=== PATIENT | female | born 1990 | race Caucasian/White ===

== ENCOUNTER 2022-10-21 19:31 | Emergency (ER) | payer BC ==
--- OUTSIDE RECORDS SUMMARY | 2022-10-21 19:35 | XMS REPORT | Continuity of Care Document ---
:1990 Author Organization [facility] t Address [address] [place] [address] [place] [id number] Care Team Providers Name Role Phone Mj West Attending Clinician MJ WEST Attending Clinician Unavailable Problems Condition Condition Condition Status Onset Resolution Last Treating Co mments Source Name Details Category Date Date Treatment Clinician Date N20.0 N20.0 Diagnosis Active 2022-09-25 Mem oria Active 713 10:15:00 l 09/21/2022 00:00: Tigre n MH 00 [facility] Flank pain Flank Problem Active 2022-10-12 M emoria (finding) pain 02:23:47 l (finding) Mineral Active Problem 10/12/2022 [facility] [place] [facility] Kidney Problem Active 2022-10-12 Scott danial stone stone 02:23:47 l (disorder) (disorder) rmjon Active Problem 10/12/2022 [facility] [place] [facility] Allergies, Adverse Reactions, Alerts This patient has no known allergies or adverse reactions. Medications Ordered Filled Start Stop Current Ordering Indication Dosage Frequency Signature Comments Components Source Medication Medication Date Date Medication? Clinician (SIG) Name Name tamsulosin Yes 0.4 mg = 1 M emoria 0.4 mg oral 7- cap, PO, l capsule 19:29: Daily, # Tigre n 00 30 cap, 0 Refill(s), Pharmacy: [facility] [place], 167.64, cm, 09/21/22 14:11:00 CDT, Height, 96.364, kg, 09/21/22 14:11:00 CDT, Weight acetaminoph Yes 300 mg =, M emoria en-hydrocod 7-13 PO, 0 l one 300 19:13: Refill(s) Ignacia nn mg-10 mg 00 oral tablet ondansetron Yes 4 mg, PO, M emoria 4 mg oral 7-13 0 l tablet, 19:13: Refill(s) Ignacia nn disintegrat 00 ing CeleXA 20 0 Yes 20 mg, PO, Me moria mg oral 713 Bedtime, 0 l tablet 19:12: Refill(s) Tigre n 00 hydrOXYzine Yes 10 mg, PO, Memoria hydrochlori 7-13 Bedtime, 0 l de 10 mg 19:12: Refill(s) Herm jon oral tablet 00 hydrochloro 0 Yes 25 mg, PO, Memoria thiazide 25 7-13 Daily, 0 l mg oral 19:12: Refill(s) Ignacia nn tablet 00 calcium Yes 950 mg, Memoria citrate 7-13 PO, Daily, l 19:12: 0 Mineral 00 Refill(s) Adzenys 0 Yes 9.4 mg, Memoria XR-ODT 9.4 7-13 PO, Daily, l mg oral 19:12: 0 Anil tablet, 00 Refill(s) disintegrat ing, extended release loratadine Yes 10 mg, PO, M emoria 10 mg oral 713 Bedtime, 0 l capsule 19:12: Refill(s) Ignacia nn 00 Immunizations Ordered Immunization Filled Immunization Date Status Commen ts Source Name Name tetanus 2022-06-13 Completed [facility] toxoid<sup>1</sup> 05:00:00 Tigre n Procedures Procedure Date / Time Performing Clinician Source Performed Cystoscopy and lithotripsy 2022-04-12 06:00:00 M warren Ma (Laser used to break up the stones in the bladder) Tympanostomy (Ear Tube 2021-06-07 05:00:00 Memor ial Anil placement) Tubal ligation done (Tubal 2020-12-13 05:00:00 M emorimarilyn Ma tied) Cholecystectomy (Gall 2015-06-11 05:00:00 Memori al Anil bladder removal) [facility] Lith[facility]ripsy using laser [facility] (Laser to break kidney stones into tiny pieces) Lithotripsy (Sending [facility] ultrasonic energy or shock waves to kidney stone) Endoscopy [facility] Colonoscopy [facility] Encounters Start End Encounter Admission Attending Care Care Encounter Source Date/Time Date/Time Type Type Clinicians Facility Department ID 2023-03-27 2023-03-27 Outpatient DARRYL DARRYL [id number] Memoria 08:45:00 08:45:00 04 l Anil 2022-10-20 2022-10-20 Outpatient DARRYL DARRYL [id number] Memoria 08:15:00 08:15:00 03 l Mineral 2022-10-09 2022-10-09 Ambulatory DARRYL [facility] [id number] Memoria 21:45:00 21:45:00 [facility] 2022-10-09 2022-10-09 Outpatient TADEO West [facility] [id number] 16:45:00 16:45:00 Mj L 00 2022-09-26 2022-09-26 Outpatient DARRYL [facility] [id number] Memoria 09:15:00 09:15:00 02 l Mineral 2022-09-25 2022-09-26 Outpatient DARRYL [facility] [id number] Memoria 15:07:00 04:59:00 Anil 00 l [place] 2022-09-25 2022-09-25 Outpatient Carlos [facility] [id number] 10:07:00 23:59:00 Mj L 00 2022-09-25 2022-09-25 Outpatient ESTELA [facility] [id number] 10:07:00 23:59:[address] [facility] Results Test Description Test Time Test Comments Results Result Comments Source RADRPT 2022-09-26 20:07:49 Test Item Value Reference Range Interpretation Comme nts RADRPT (test code = RADRPT) Radiation Dose CTDIVOL = 0 (mGy): DLP = 348.7 (mGy-cm)PROCEDURE INFORMATION: Exam: CT Abdomen And Pelvis Without Contrast Exam date and time: 09/25/2022 11:51 AM Age: 32 years old Clinical indication: Calculus of kidney; Additional info: /. TECHNIQUE: Imaging protocol: Computed tomography of the abdomen and pelvis without contrast. Radiation optimization: All CT scans at this facility use at least one of these dose optimization techniques: automated exposure control; mA and/or kV adjustment per patient size (includes targeted exams where dose is matched to clinical indication); or iterative reconstruction. REPORTING DATA: Count of CT and Cardiac NM exams in prior 12 months: This patient has received 0 known CTs and 0 known cardiac nuclear medicine studies in the 12 months prior to the current study. COMPARISON: No relevant prior studies available. RADIATION DOSE METRICS: Total DLP (mGy-cm): 348.7 FINDINGS: Liver: Diffuse fatty infiltration of the liver. Gallbladder and bile ducts: Cholecystectomy. Pancreas: Normal. No ductal dilation. Spleen: Normal. No splenomegaly. Adrenal glands: Normal. No mass. Kidneys and ureters: Nonobstructing stones in the kidneys. No hydronephrosis. Stomach and bowel: Unremarkable. No obstruction. No mucosal thickening. Appendix: No evidence of appendicitis. Intraperitoneal space: Unremarkable. No free air. No significant fluid collection. Vasculature: Unremarkable. No abdominal aortic aneurysm. Lymph nodes: Unremarkable. No enlarged lymph nodes. Urinary bladder: Unremarkable as visualized. Reproductive: Unremarkable as visualized. Bones/joints: Unremarkable. No acute fracture. Soft tissues: Unremarkable. IMPRESSION: 1. Nonobstructing calyceal stones in the kidneys. 2. Hepatic steatosis. Heriberto Calderon MD On 09/26/2022 15:06:56; [id number] [id number] 13:11:19 Test Item Value Reference Range Interpretation Comments RADRPT (test code PROCEDURE INFORMATION: = RADRPT) Exam: XR Abdomen Exam date and time: 09/25/2022 12:38 PM Age: 32 years old Clinical indication: Calculus of kidney; Unspecified abdominal pain; Additional info: /n20.0, r10.9 TECHNIQUE: Imaging protocol: Radiologic exam of the abdomen. Views: Frontal supine view of the abdomen. 1 View. COMPARISON: ABDOMEN/PELVIS WO IV CONTRAST CT 09/25/2022 11:51 AM FINDINGS: Gastrointestinal tract: Mild stool burden at the flexures, transverse and right colon. Nonobstructive bowel gas pattern. Organs: Surgical clips are present at the right upper quadrant likely status post cholecystectomy. Several punctate 1-1.5 mm radiopaque left renal calculi are present at the superior and inferior poles. Bones/joints: No acute abnormality.Unremarkable for age. IMPRESSION: Several punctate 1-1.5 mm radiopaque left renal calculi are present at the superior and inferior poles. A single punctate 1 x 1.5 mm radiopaque right renal calculus is present at the inferior pole. Aris Martínez MD On 09/26/2022 08:10:25; [id number] [facility] Notes Date/Time Note Provider Source 2022-09-25 11:45:00-00:00 Radiation Dose CTDIVOL = 0 ( mGy): DLP = 348.7 (mGy-cm) [facility] PROCEDURE INFORMATION: Exam: CT Abdomen And Pelvis Without Contrast Exam date and time: 09/25/2022 11:51 AM Age: 32 years old Clinical indication: Calculus of kidney; Additio nal info: /. TECHNIQUE: Imaging protocol: Computed tomography of the abd omen and pelvis without contrast. Radiation optimization: All CT scans at this facility use at least one of these dose optimization techniques: automated exposure control; mA and/or kV adjustment per patient size (includes targeted e xams where dose is matched to clinical indication); or iterative reconstructio n. REPORTING DATA: Count of CT and Cardiac NM exams in prio r 12 months: This patient has received 0 known CTs and 0 known card iac nuclear medicine studies in the 12 months prior to the current study. COMPARISON: No relevant prior studies available. RADIATION DOSE METRICS: Total DLP (mGy-cm): 348.7 FINDINGS: Liver: Diffuse fatty infiltration of the liver. Gallbladder and bile ducts: Cholecystectomy. Pancreas: Normal. No ductal dilation. Spleen: Normal. No splenomegaly. Adrenal glands: Normal. No mass. Kidneys and ureters: Nonobstructing stones in th e kidneys. No hydronephrosis. Stomach and bowel: Unremarkable. No obstruction. No mucosal thickening. Appendix: No evidence of appendicitis. Intraperitoneal space: Unremarkable. No free air . No significant fluid collection. Vasculature: Unremarkable. No abdominal aortic a neurysm. Lymph nodes: Unremarkable. No enlarged lymph nod es. Urinary bladder: Unremarkable as visualized. Reproductive: Unremarkable as visualized. Bones/joints: Unremarkable. No acute fracture. Soft tissues: Unremarkable. IMPRESSION: 1. Nonobstructing calyceal stones in the kidneys . 2. Hepatic steatosis. Heriberto Calderon MD On 09/26/2022 15:06:56; [id number] 2022-09-25 10:46:00-00:00 PROCEDURE INFORMATION: Jeison Exam: XR Abdomen Exam date and time: 09/25/2022 12:38 PM Age: 32 years old Clinical indication: Calculu s of kidney; Unspecified abdominal pain; Additional info: /n20.0, r10.9 TECHNIQUE: Imaging protocol: Radiologic exam of the abdomen . Views: Frontal supine view of the abdomen. 1 Vie w. COMPARISON: ABDOMEN/PELVIS WO IV CONTRAST CT 09/25/2022 11:51 AM FINDINGS: Gastrointestinal tract: Mild stool burden at the flexures, transverse and right colon. Nonobstructive bowel gas pattern. Organs: Surgical clips are present at the right upper quadrant likely status post cholecystectomy. Several punctate 1-1.5 mm radiopaque left renal calculi are present at the superior and inferior poles. Bones/joints: No acute abnormality.Unremarkable for age. IMPRESSION: Several punctate 1-1.5 mm radiopaque left renal calculi are present at the superior and inferior poles. A single punctate 1 x 1.5 mm radiopaque right renal calculus is present at the inferior pole. Aris Martínez MD On 09/26/2022 08:10:25; [id number]
[2022-10-21] MEDS ORDERED: HYDROCODONE/APAP 5/325 MG TAB ONE (21:06)
[2022-10-21] MEDS ORDERED: HYDROCODONE/APAP 7.5/325 MG TAB ONE (21:06)
--- NOTE | 2022-10-21 22:00 | RAD REPORT ---
EXAM DESCRIPTION: RAD - Foot Right 3 View - 10/21/2022 9:40 pm CLINICAL HISTORY: laceration COMPARISON: Foot Right 3 View dated 10/03/2022 TECHNIQUE: Right foot, 3 views. FINDINGS: No fracture, dislocation or periosteal reaction. Soft tissue swelling along the heel small locules of soft tissue gas. IMPRESSION: Soft tissue swelling with small locules of soft tissue gas at the heel, likely related t o known laceration. No acute osseous abnormality.
[2022-10-21] MEDS ORDERED: DERMABOND SKIN ADHESIVE TOP ONE ×2 (22:30→22:54)
--- NOTE | 2022-10-21 22:48 | ER ---
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 Coronavirus screen: Vaccine status: Patient reports being unvaccinated. Ebola Screen: Patient negative for fever greater than or equal to 101.5 degrees Fahrenheit, and additional compatible Ebola Virus Disease symptoms. Complicating Factors: There are no complicating factors for this patient. Initial Sepsis Screen: Does the patient meet any 2 criteria? No. Patient's initial sepsis screen is negative. Does the patient have a suspected source of infection? No. Patient's initial sepsis screen is negative. Risk Assessment: Do you want to hurt yourself or someone else? Patient reports no desire to harm self or others. 19:38 Method Of Arrival: Ambulatory 19:38 Acuity: TAHIRA 4 kl 22:33 Onset of symptoms was October 21, 2022. eb1 Triage Assessment: 19:46 General: Appears in no apparent distress. comfortable, Behavior is calm, cooperative. Pain: Complains of pain in left first toe Pain currently is 7 out of 10 on a pain scale. Injury Description: Laceration is bleeding a small amount. PROJECT ASST: 22:33 LMP N/A - eb1 Historical: - Allergies: 19:41 Latex, Natural Rubber; kl 19:41 duracef; kl 19:41 Keflex; kl 19:41 Macrobid; kl 19:41 Septra; kl 19:41 Detrol LA; kl - Home Meds: 19:41 Celexa Oral [Active]; Hydroxyzine Oral [Active]; HCTZ [Active]; Calcium Citrate Oral kl [Active]; Adzenys XR-ODT oral [Active]; loratadine oral [Active]; - PMHx: 19:41 Asthma; ADD; Celiac; IGA; Medullary sponge kidney; depression; Anxiety; kl - PSHx: 19:41 Ligation of fallopian tube; Ligation of fallopian tube; Lithotripsy; Cholecystectomy; kl - Immunization history:: Last tetanus immunization: up to date. - Social history:: Smoking status: Patient denies any tobacco usage or history of. Screenin:32 [facility] ED Fall Risk Assessment (Adult) Score/Fall Risk Level 0 - 2 = Low Risk eb1 Oriented to surroundings. Abuse screen: Denies threats or abuse. Denies injuries from another. Nutritional screening: No deficits noted. Tuberculosis screening: No symptoms or risk factors identified. Assessment: 21:09 General: Appears in no apparent distress. uncomfortable, well groomed, well developed, eb1 well nourished, Behavior is calm, cooperative, appropriate for age, Denies fever, feeling ill, fatigue. Pain: Complains of pain in left first toe Pain currently is 8 out of 10 on a pain scale. Neuro: No deficits noted. Cardiovascular: No deficits noted. Respiratory: No deficits noted. GI: No deficits noted. No signs and/or symptoms were reported involving the gastrointestinal system. : No deficits noted. No signs and/or symptoms were reported regarding the genitourinary system. EENT: No deficits noted. No signs and/or symptoms were reported regarding the EENT system. Derm: Wound noted left first toe Wound is laceration to top of left great toe from metal marti. Musculoskeletal: No deficits noted. No signs and/or symptoms reported regarding the musculoskeletal system. 22:13 Reassessment: Patient appears in no apparent distress at this time. No changes from eb1 previously documented assessment. Patient and/or family updated on plan of care and expected duration. Pain level reassessed. 22:34 Injury Description: Laceration is clean. eb1 Vital Signs: 19:38 BP 125 / 92; Pulse 92; Resp 18; Temp 98.8; Pulse Ox 100% on R/A; Weight 92.99 kg (R); kl Height 5 ft. 6 in. ; Pain 7/10; 21:11 BP 138 / 80; Pulse 88; Resp 16; Temp 97.2; Pulse Ox 98% ; Pain 8/10; eb1 19:38 Body Mass Index 33.09 (92.99 kg, 167.64 cm) kl 19:38 Pain Scale: Adult kl 21:11 Pain Scale: Adult eb1 ED Course: 19:36 Patient arrived in ED. kj1 19:41 Triage completed. kl 20:01 Alejandrina Barrera PA-C is PHCP. sb4 20:01 Danielle Potts MD is Attending Physician. sb4 21:29 Foot Right 3 View XRAY Sent. eb1 21:41 Foot Right 3 View XRAY In Process Unspecified. EDMS 22:32 No provider procedures requiring assistance completed. eb1 22:32 Arm band placed on right wrist. eb1 22:33 Patient has correct armband on for positive identification. Bed in low position. Call eb1 light in reach. 22:56 Provided Education on: keep wound clean and dry. eb1 23:07 Patient did not have IV access during this emergency room visit. eb1 Administered Medications: 20:59 Drug: Hydrocodone-Acetaminophen PO (7.5 mg-325 mg) 1 tabs Route: PO; eb1 22:14 Follow up: Response: Pain is decreased eb1 Medication: 22:33 VIS not applicable for this client. eb1 Outcome: 22:48 Discharge ordered by MD. sb4 22:55 Condition: good eb1 22:55 Discharge instructions given to patient, Instructed on discharge instructions, medication usage, wound care, Demonstrated understanding of instructions, medications, wound care. 23:07 Discharged to home ambulatory, with family. eb1 23:07 Prescriptions given X 2. 23:08 Patient left the ED. eb1 Signatures: Dispatcher [employer] EDBri Story RN RN kl Basinger, Emily, RN RN Laisha Colon Sophia, PA-C PA-C sb4 Corrections: (The following items were deleted from the chart) 19:45 19:41 Allergies: No Known Allergies; pura neves
--- NOTE | 2022-10-21 22:49 | EDPHYS ---
Physician Documentation [facility] Name: Carole Llanes Age: 32 yrs Sex: Female : 1990 Arrival Date: 10/21/2022 Time: 19:31 Bed 11 Private MD: ED Physician Danielle Potts HPI: 10/22 02:32 This 32 yrs old Female presents to ER via Ambulatory with complaints of Laceration To sb4 Foot . 02:32 The patient has a laceration occurred outdoors, The injury was accidental. The sb4 laceration(s) is(are) located on the left first toe. Onset: The symptoms/episode began/occurred just prior to arrival. The patient has not experienced similar symptoms in the past. [place] "pop up" tent when the leg of the tent scraped her left foot. she reports moderate bleeding and pain to the site. up to date on tetanus. CHEMICAL TESTER: 10/21 22:33 LMP N/A - eb1 Historical: - Allergies: 19:41 Latex, Natural Rubber; kl 19:41 duracef; kl 19:41 Keflex; kl 19:41 Macrobid; kl 19:41 Septra; kl 19:41 Detrol LA; kl - Home Meds: 19:41 Celexa Oral [Active]; Hydroxyzine Oral [Active]; HCTZ [Active]; Calcium Citrate Oral kl [Active]; Adzenys XR-ODT oral [Active]; loratadine oral [Active]; - PMHx: 19:41 Asthma; ADD; Celiac; IGA; Medullary sponge kidney; depression; Anxiety; kl - PSHx: 19:41 Ligation of fallopian tube; Ligation of fallopian tube; Lithotripsy; Cholecystectomy; kl - Immunization history:: Last tetanus immunization: up to date. - Social history:: Smoking status: Patient denies any tobacco usage or history of. ROS: 10/22 02:32 Constitutional: Negative for fever, chills, and weight loss. sb4 MS/extremity: Positive for laceration, of the left foot. Skin: Positive for laceration(s). All other systems are negative. Exam: 14:57 Constitutional: This is a well developed, well nourished patient who is awake, alert, sb4 and in no acute distress. 14:57 Skin: injury, laceration(s), the wound is approximately 2 cm(s), with a depth of .5 cm(s), of the left first toe, that can be described as clean, no foreign body, linear, with mild bleeding. Vital Signs: 10/21 19:38 BP 125 / 92; Pulse 92; Resp 18; Temp 98.8; Pulse Ox 100% on R/A; Weight 92.99 kg (R); kl Height 5 ft. 6 in. ; Pain 7/10; 21:11 BP 138 / 80; Pulse 88; Resp 16; Temp 97.2; Pulse Ox 98% ; Pain 8/10; eb1 19:38 Body Mass Index 33.09 (92.99 kg, 167.64 cm) kl 19:38 Pain Scale: Adult kl 21:11 Pain Scale: Adult eb1 Laceration: 10/22 14:57 Wound Repair of 2cm ( 0.8in ) subcutaneous laceration to left first toe. Linear sb4 shaped.. Minimal contamination.. Minimal bleeding noted.. Distal neuro/vascular/tendon intact. Wound prep: Extensive cleansing with betadine by nurse. Skin closed with 1-0 Adhesive skin closure using Dermabond. Dressed with Kerlix. Patient tolerated well. MDM: 10/21 20:02 Patient medically screened. sb4 10/22 14:57 Differential diagnosis: superficial laceration, tendon injury, vascular injury. Data sb4 reviewed: vital signs, nurses notes, radiologic studies, plain films, and as a result, I will discharge patient. Test considered but Not performed: Labs: not indicated given minor laceration. Counseling: I had a detailed discussion with the patient and/or guardian regarding: the historical points, exam findings, and any diagnostic results supporting the discharge/admit diagnosis, radiology results, to return to the emergency department if symptoms worsen or persist or if there are any questions or concerns that arise at home. Medication response: norco, pain decreased. 10/21 20:48 Order name: Foot Right 3 View XRAY; Complete Time: 22:13 sb4 10/21 20:48 Order name: Wound Care: soak in betadine bath; Complete Time: 21:29 sb4 10/21 21:21 Order name: Dermabond; Complete Time: 22:46 sb4 Administered Medications: 10/21 20:59 Drug: Hydrocodone-Acetaminophen PO (7.5 mg-325 mg) 1 tabs Route: PO; eb1 22:14 Follow up: Response: Pain is decreased eb1 Disposition Summary: 10/21/22 22:48 Discharge Ordered Location: Home sb4 Problem: new sb4 Symptoms: have improved sb4 Condition: Stable sb4 Diagnosis - Laceration without foreign body of foot sb4 Followup: sb4 - With: Private Physician - When: As needed - Reason: Recheck today's complaints, Continuance of care, Re-evaluation by your physician Discharge Instructions: - Discharge Summary Sheet sb4 - Sutures, Trista, or Adhesive Wound Closure, [id number] sb4 Forms: - Medication Reconciliation Form sb4 - Thank You Letter sb4 - Antibiotic Education sb4 - Prescription Opioid Use sb4 - Patient Portal Instructions sb4 - Leadership Thank You Letter sb4 Prescriptions: - Doxycycline Hyclate 100 mg Oral Tablet - take 1 tablet by ORAL route every 12 hours; 20 tablet; Refills: 0, Product sb4 Selection Permitted - Fluconazole 150 mg Oral Tablet - take 1 tablet by ORAL route once daily; 10 tablet; Refills: 0, Product sb4 Selection Permitted Signatures: Dispatcher [employer] Bri Crow RN RN kl Basinger, Emily, RN RN ebAlejandrina Schultz PA-C PA-C sb4 Corrections: (The following items were deleted from the chart) 19:45 19:41 Allergies: No Known Allergies; pura neves
[2022-10-21] MEDS ORDERED: ONDANSETRON 4 MG (ODT) TAB ONE (22:55)
[2022-10-21 23:20] VITALS: BP 138/80; TEMP 97.2; O2SAT 98
== END 2022-10-21 23:08 | disposition home or self-care (01) ==
LOC: ER 19:31
PROC: 0HQMXZZ Repair Right Foot Skin, External Approach (ICD-10-PCS; principal; 2022-10-21)
DX: S91.311A Laceration without foreign body, right foot, initial encounter (principal)
CPT/HCPCS: 73630; 99283; 12001; Q0162

== ENCOUNTER 2022-11-08 18:36 | Emergency (ER) | payer BC ==
--- OUTSIDE RECORDS SUMMARY | 2022-11-08 18:39 | XMS REPORT | Continuity of Care Document ---
:1990 Author Organization [facility] t Address [address] [place] [address] [address] [place] [address] Care Team Providers Name Role Phone Darnell Chun Attending Clinician Mj West Attending Clinician MJ WEST Attending Clinician Unavailable Problems Condition Condition Condition Status Onset Resolution Last Treating Co mments Source Name Details Category Date Date Treatment Clinician Date N20.0 N20.0 Diagnosis Active 2022-09-25 Mem oria Active 09-21 10:15:00 l 09/21/2022 00:00: Tigre clark 00 [facility] Kidney Kidney Problem Active 2022-10-23 Scott danial stone stone 11:56:32 l (disorder) (disorder) Stephen rmann Active Problem 10/23/2022 [facility] [place] Pain in Pain in Problem Active 2022-10-23 Me moria wrist wrist 11:56:32 l (finding) (finding) Herm jon Active Problem 10/23/2022 [facility] [place] Paresthesi Paresthes Problem Active 2022-10-23 Memoria a ia 11:56:32 l (finding) (finding) Herm jon Active Problem 10/23/2022 [facility] [place] Flank pain Flank Problem Active 2022-10-23 M emoria (finding) pain 11:56:32 l (finding) Anil Active Problem 10/23/2022 [facility] [place] Allergies, Adverse Reactions, Alerts This patient has no known allergies or adverse reactions. Medications Ordered Filled Start Stop Current Ordering Indication Dosage Frequency Signature Comments Components Source Medication Medication Date Date Medication? Clinician (SIG) Name Name tamsulosin 3-0 Yes 0.4 mg = 1 M emoria 0.4 mg oral 7-13 cap, PO, l capsule 19:29: Daily, # Tigre n 00 30 cap, 0 Refill(s), Pharmacy: [facility], 167.64, cm, 09/21/22 14:11:00 CDT, Height, 96.364, kg, 09/21/22 14:11:00 CDT, Weight tamsulosin 3-0 Yes 0.4 mg = 1 M emoria 0.4 mg oral 7-13 cap, PO, l capsule 19:29: Daily, # Tigre n 00 30 cap, 0 Refill(s), Pharmacy: [facility], 167.64, cm, 09/21/22 14:11:00 CDT, Height, 96.364, kg, 09/21/22 14:11:00 CDT, Weight acetaminoph 3-0 Yes 300 mg =, M emoria en-hydrocod 7-13 PO, 0 l one 300 19:13: Refill(s) Ignacia nn mg-10 mg 00 oral tablet ondansetron 3-0 Yes 4 mg, PO, M emoria 4 mg oral 7-13 0 l tablet, 19:13: Refill(s) Ignacia nn disintegrat 00 ing acetaminoph 3-0 Yes 300 mg =, M emoria en-hydrocod 7-13 PO, 0 l one 300 19:13: Refill(s) Ignacia nn mg-10 mg 00 oral tablet ondansetron 3-0 Yes 4 mg, PO, M emoria 4 mg oral 7-13 0 l tablet, 19:13: Refill(s) Ignacia nn disintegrat 00 ing CeleXA 20 3-0 Yes 20 mg, PO, Me moria mg oral 7-13 Bedtime, 0 l tablet 19:12: Refill(s) Tigre n 00 hydrOXYzine 2023-0 Yes 10 mg, PO, Memoria hydrochlori 7-13 Bedtime, 0 l de 10 mg 19:12: Refill(s) Herm jon oral tablet 00 hydrochloro 3-0 Yes 25 mg, PO, Memoria thiazide 25 7-13 Daily, 0 l mg oral 19:12: Refill(s) Ignacia nn tablet 00 calcium 2022-0 Yes 950 mg, Memoria citrate 7-13 PO, Daily, l 19:12: 0 Anil 00 Refill(s) Adzenys 2022-0 Yes 9.4 mg, Memoria XR-ODT 9.4 7-13 PO, Daily, l mg oral 19:12: 0 Anil tablet, 00 Refill(s) disintegrat ing, extended release loratadine 2022-0 Yes 10 mg, PO, M emoria 10 mg oral 7-13 Bedtime, 0 l capsule 19:12: Refill(s) Ignacia nn 00 CeleXA 20 2022-0 Yes 20 mg, PO, Me moria mg oral 7-13 Bedtime, 0 l tablet 19:12: Refill(s) Tigre n 00 hydrOXYzine 0 Yes 10 mg, PO, Memoria hydrochlori 7-13 Bedtime, 0 l de 10 mg 19:12: Refill(s) Herm jon oral tablet 00 hydrochloro 2022-0 Yes 25 mg, PO, Memoria thiazide 25 7-13 Daily, 0 l mg oral 19:12: Refill(s) Ignacia nn tablet 00 calcium 2022-0 Yes 950 mg, Memoria citrate 7-13 PO, Daily, l 19:12: 0 Ward 00 Refill(s) Adzenys 2022-0 Yes 9.4 mg, Memoria XR-ODT 9.4 7-13 PO, Daily, l mg oral 19:12: 0 Ward tablet, 00 Refill(s) disintegrat ing, extended release loratadine 2022-0 Yes 10 mg, PO, M emoria 10 mg oral 7-13 Bedtime, 0 l capsule 19:12: Refill(s) Ignacia nn 00 Immunizations Ordered Immunization Filled Immunization Date Status Commen ts Source Name Name tetanus 2022-06-13 Completed [facility] toxoid<sup>1</sup> 05:00:00 Tigre clark tetanus 2022-06-13 Completed [facility] toxoid<sup>1</sup> 05:00:00 Tigre clark Procedures Procedure Date / Time Performing Clinician Source Performed Cystoscopy and lithotripsy 2022-04-12 06:00:00 [facility] Anil (Laser used to break up the stones in the bladder) Tympanostomy (Ear Tube 2021-06-07 05:00:00 Memor ial Ward placement) Tubal ligation done (Tubal 2020-12-13 05:00:00 [facility] Anil tied) Cholecystectomy (Gall 2015-06-11 05:00:00 Memori al Anil bladder removal) [facility] to [facility] stones into tiny pieces) Lithotripsy (Sending [facility] ultrasonic energy or shock waves to kidney stone) Endoscopy [facility] Colonoscopy [facility] Encounters Start End Encounter Admission Attending Care Care Encounter Source Date/Time Date/Time Type Type Clinicians Facility Department ID 2023-03-27 2023-03-27 Outpatient [facility]IE [id number] Memoria 08:45:00 08:45:00 04 marce Anil 2023-03-27 2023-03-27 Outpatient MHIE IE [id number] Memoria 08:45:00 08:45:00 04 marce Ma 2022-10-20 2022-10-21 Outpatient MHIE MNA [id number] Memoria 13:15:00 04:59:59 Neurology 03 marce Ma 2022-10-20 2022-10-20 Outpatient ELIZABETH Chun 255 [id number] 08:15:00 23:59:59 Darnell 03 [place] 2022-10-20 2022-10-20 Outpatient IE IE [id number] Memoria 08:15:00 08:15:00 03 marce Ma 2022-10-20 2022-10-20 Outpatient MHIE MHIE [id number] Memoria 08:15:00 08:15:00 03 marce Ma 2022-10-09 2022-10-09 Ambulatory MHIE MG [id number] Memoria 21:45:00 21:45:00 Pre-Reg Urology 00 l Associates Ignacia nn Time Share 2022-10-09 2022-10-09 Ambulatory MHIE MG [id number] Memoria 21:45:00 21:45:00 Pre-Reg Urology 00 l Associates Ignacia nn Time Share 2022-10-09 2022-10-09 Outpatient TADEO [place] [facility] [id number] 16:45:00 16:45:00 Mj L 00 2022-09-26 2022-09-26 Outpatient DARRYL [facility] [id number] Memoria 09:15:00 09:15:00 02 l Ward 2022-09-26 2022-09-26 Outpatient DARRYL [facility] [id number] Memoria 09:15:00 09:15:00 02 l Ward 2022-09-25 2022-09-26 Outpatient DARRYL [facility] [id number] Memoria 15:07:00 04:59:00 Ward 00 l [facility] 2022-09-25 2022-09-26 Outpatient [facility] [id number] Memoria 15:07:00 04:59:00 Anil 00 l [facility] 2022-09-25 2022-09-25 Outpatient ESTELA [facility] [id number] 10:07:00 23:59:[address] [facility] 2022-09-25 2022-09-25 Outpatient ESTELA [place] [facility] [id number] 10:07:00 23:59:00 Mj L 00 Results Test Description Test Time Test Comments [...] steatosis. Heriberto Calderon MD On 09/26/2022 15:06:56; [id number] [id number] 20:07:49 Test Item Value Reference Range Interpretation Comments RADRPT (test code Radiation Dose CTDIVOL = 0 = RADRPT) (mGy): DLP = 348.7 (mGy-cm)PROCEDURE INFORMATION: Exam: [...] steatosis. Heriberto Calderon MD On 09/26/2022 15:06:56; [id number] [id number] 13:11:19 Test Item Value Reference Range Interpretation [...] pole. Aris Martínez MD On 09/26/2022 08:10:25; [id number] [id number] 13:11:19 Test Item Value Reference Range Interpretation [...] pole. Aris Martínez MD On 09/26/2022 08:10:25; [id number] [facility] Notes Date/Time Note Provider Source 2022-09-25 11:45:00-00:00 Radiation Dose CTDIVOL = 0 ( mGy): DLP = 348.7 (mGy-cm) [facility] PROCEDURE INFORMATION: Exam: CT Abdomen And Pelvis [...] steatosis. Heriberto Calderon MD On 09/26/2022 15:06:56; [id number] 2022-09-25 11:45:00-00:00 Radiation Dose CTDIVOL = 0 ( mGy): DLP = 348.7 (mGy-cm) [facility] PROCEDURE INFORMATION: Exam: CT Abdomen And Pelvis [...] steatosis. Heriberto Calderon MD On 09/26/2022 15:06:56; [id number] 2022-09-25 10:46:00-00:00 PROCEDURE INFORMATION: [facility] Exam: XR Abdomen Exam date and time: [...] Aris Martínez MD On 09/26/2022 08:10:25; VR-MX [id number] 2022-09-25 10:46:00-00:00 PROCEDURE INFORMATION: [facility] Exam: XR Abdomen Exam date and time: [...] Aris Martínez MD On 09/26/2022 08:10:25; VR-MX [id number]
[2022-11-08 19:00] LABS: Absolute Lymphocytes (CBC) 2.3 K/uL (0.7-4.9); Hematocrit 41.1 % (36.0-45.0); Lymphocytes % 19.8 % (15.3-44.8); MCV 82.1 fL (80-100); MPV 6.3 fL (7.6-11.3); Platelets 328 thou/uL (152-406); RBC Red Blood Cell Count 5.01 M/uL (3.86-4.86)
[2022-11-08 19:05] LABS: Specific Gravity 1.017 (1.005-1.030)
[2022-11-08 19:18] LABS: Albumin 3.9 g/dL (3.4-5.0); Bilirubin Total 0.3 mg/dL (0.2-1.0); Potassium 3.3 mEq/L (3.5-5.1); Protein, Total 7.8 g/dL (6.4-8.2)
[2022-11-08] MEDS ORDERED: MORPHINE 4 MG/ML SYR ONE (19:18)
[2022-11-08] MEDS ORDERED: ONDANSETRON 4 MG/2 ML VIAL ONE (19:18)
[2022-11-08 19:19] LABS: Specific Gravity 1.017 (1.005-1.030); Urine Bacteria None Seen /HPF (<20); Urine Bilirubin NEGATIVE (Negative); Urine Blood Negative (Negative); Urine Clarity Extremely Turbid (Clear); Urine Color Light-Yellow (Yellow); Urine Glucose NEGATIVE (Negative); Urine Mucus Slight /HPF (None Seen); Urine Protein NEGATIVE (Negative); Urine RBC <5 /HPF (None Seen); Urine Urobilinogen Normal (Normal)
--- NOTE | 2022-11-08 19:24 | RAD REPORT ---
EXAM DESCRIPTION: CT - Stone Protocol - 11/08/2022 7:00 pm CLINICAL HISTORY: Abdominal pain. Flank pain COMPARISON: None. TECHNIQUE: Computed axial tomography of the abdomen pelvis was obtained without oral or IV contrast. Lack of IV and oral contrast limits evaluation of solid organs, appendix, bowel, and vessels. Eduardo l reformatted images were obtained and reviewed. All CT scans are performed using dose optimization technique as appropriate and may include automated exposure control or mA/KV adjustment according to patient size. FINDINGS: Multiple small bilateral renal calculi. Most are present within renal medulla. Mild left h ydronephrosis. Left ureter mildly dilated. 2 millimeter calculus distal left ureter. Liver is mildly enlarged. Cholecystectomy Spleen, pancreas and adrenals appear grossly normal There is no evidence of diverticulitis. The appendix appears normal No adnexal mass IMPRESSION: 2 millimeter calculus distal left ureter resulting mild left hydronephrosis Mild hepatomegaly
[2022-11-08] MEDS ORDERED: TAMSULOSIN 0.4 MG SR CAP ONE (20:11)
--- NOTE | 2022-11-08 20:47 | ER ---
Nurse's Notes [facility] Name: Carole Llanes Age: 32 yrs Sex: Female : 1990 Arrival Date: 11/08/2022 Time: 18:36 Bed 16 Private MD: Diagnosis: Calculus of kidney with calculus of ureter Presentation: 11/08 18:42 Chief complaint: Patient states: low back pain and nausea that started a few weeks ago, ap3 however the pain today is no longer controlled. Coronavirus screen: At this time, the client does not indicate any symptoms associated with coronavirus-19. Ebola Screen: No symptoms or risks identified at this time. Risk Assessment: Do you want to hurt yourself or someone else? Patient reports no desire to harm self or others. Onset of symptoms is unknown. 18:42 Method Of Arrival: Ambulatory ap3 18:43 Initial Sepsis Screen: Does the patient meet any 2 criteria? No. Patient's initial ap3 sepsis screen is negative. Does the patient have a suspected source of infection? No. Patient's initial sepsis screen is negative. 18:43 Acuity: TAHIRA 3 ap3 Triage Assessment: 18:44 General: Appears in no apparent distress. Behavior is calm, cooperative, appropriate ap3 for age. Pain: Complains of pain in low back area Pain currently is 9 out of 10 on a pain scale. Pain began gradually. Neuro: Level of Consciousness is awake, alert, obeys commands, Oriented to person, place, time, situation, Appropriate for age. Cardiovascular: Patient's skin is warm and dry. Respiratory: Airway is patent Respiratory effort is even, unlabored, Respiratory pattern is regular, symmetrical. GI: Reports nausea. Historical: - Allergies: 18:42 Detrol LA; ap3 18:42 duracef; ap3 18:42 Keflex; ap3 18:42 Latex, Natural Rubber; ap3 18:42 Macrobid; ap3 18:42 Septra; ap3 - PMHx: 18:42 ADD; Anxiety; Asthma; celiac; Depression; IGA; Medullary sponge kidney; ap3 - PSHx: 18:42 Cholecystectomy; Ligation of fallopian tube; Ligation of fallopian tube; Lithotripsy; ap3 - Immunization history:: Adult Immunizations up to date. - Social history:: Smoking status: Patient denies any tobacco usage or history of. Screenin:45 [facility] ED Fall Risk Assessment (Adult) History of falling in the last 3 months, ap3 including since admission No falls in past 3 months (0 pts). Abuse screen: Denies threats or abuse. Nutritional screening: No deficits noted. Tuberculosis screening: No symptoms or risk factors identified. Assessment: 18:53 Reassessment: No changes from previously documented assessment. Patient and/or family ll1 updated on plan of care and expected duration. Pain level reassessed. Patient is alert, oriented x 3, equal unlabored respirations, skin warm/dry/pink. Vital Signs: 18:43 Pulse 84; Resp 17; Temp 98.1; Pulse Ox 100% ; Weight 93.44 kg; Height 5 ft. 6 in. ; ap3 Pain 9/10; 18:45 BP 130 / 96; ap3 20:00 BP 117 / 87; Pulse 75; Resp 16; Pulse Ox 100% ; rv 21:00 BP 118 / 77; Pulse 73; Resp 17; Pulse Ox 100% ; rv 21:42 BP 111 / 75; Pulse 72; Resp 17; Temp 98; Pulse Ox 100% ; rv 18:43 Body Mass Index 33.25 (93.44 kg, 167.64 cm) ap3 18:43 Pain Scale: Adult ap3 ED Course: 18:37 Patient arrived in ED. rg4 18:40 Rhonda Feliciano FNP-C [facility]. kb 18:40 Omar Crockett MD is Attending Physician. kb 18:44 Triage completed. ap3 18:45 Arm band placed on right wrist. ap3 18:46 Rupesh Morel, RAYMOND is Primary Nurse. ll1 18:52 Patient has correct armband on for positive identification. Bed in low position. Call ll1 light in reach. Cardiac monitoring not applicable on this patient. 18:52 Urinalysis w/ reflexes Sent. ll1 18:52 Test, Urine Sent. ll1 18:52 Inserted saline lock: 22 gauge in left antecubital area, using aseptic technique. Blood ll1 collected. 18:52 No provider procedures requiring assistance completed. ll1 19:02 CT Stone Protocol In Process Unspecified. EDMS 21:42 Provided Education on: KIDNEY STONES. rv 21:42 IV discontinued, intact, bleeding controlled, No redness/swelling at site. Pressure rv dressing applied. Administered Medications: 19:12 Drug: Ondansetron IVP 4 mg Route: IVP; Site: left antecubital; rv 20:46 Follow up: Response: No adverse reaction rv 19:12 Drug: morphine IVP or IV 4 mg Route: IVP; Infused Over: 4 mins; Site: left antecubital; rv 20:46 Follow up: Response: No adverse reaction rv 20:00 Drug: Flomax PO 0.4 mg Route: PO; rv 20:46 Follow up: Response: No adverse reaction rv 20:46 Drug: Magnesium Sulfate IVPB 1 grams Route: IVPB; Infused Over: 1 hrs; Site: left rv antecubital; 21:42 Follow up: Response: No adverse reaction; IV Status: Completed infusion; IV Intake: rv 100ml 21:39 Drug: Ketorolac IVP 15 mg Route: IVP; Site: left antecubital; rv 21:42 Follow up: Response: Medication administered at discharge. rv Medication: 18:52 VIS not applicable for this client. ll1 Intake: 21:42 IV: 100ml; Total: 100ml. rv Outcome: 20:46 Discharge ordered by . kb 21:42 Discharged to home ambulatory. rv 21:42 Condition: improved 21:42 Discharge instructions given to patient, Instructed on discharge instructions, follow up and referral plans. Demonstrated understanding of instructions, follow-up care. 21:43 Patient left the ED. rv Signatures: Dispatcher [employer] EDNE Rhonda Feliciano, AMBREEN STUART-Marilu Herman rg4 Sandra Lynne RN RN ap3 Edson Daley RN RN rv Lewis, Lynsay, RN RN ll1
--- NOTE | 2022-11-08 20:47 | EDPHYS ---
Physician Documentation [facility] Name: Carole Llanes Age: 32 yrs Sex: Female : 1990 Arrival Date: 11/08/2022 Time: 18:36 Bed 16 Private MD: ED Physician Omar Crockett HPI: 11/08 22:33 This 32 yrs old Female presents to ER via Ambulatory with complaints of Low Back Pain, kb Nausea. 22:33 The patient complains of pain in the left flank. The pain does not radiate. Onset: The kb symptoms/episode began/occurred today. Modifying factors: The symptoms are alleviated by nothing. the symptoms are aggravated by palpation/percussion. Associated signs and symptoms: Pertinent positives: urinary frequency, Pertinent negatives: diarrhea, dizziness, dysuria, fever, headache, hematuria, nausea, pain radiating to the lower extremities, vomiting. Severity of pain: At its worst the pain was moderate in the emergency department the pain is unchanged. The patient has experienced similar episodes in the past. The patient has not recently seen a physician. 22:33 Pt reports left flank pain and urinary frequency that started today. States she has had kb hydronephrosis before and feels like it is happening again. Historical: - Allergies: 18:42 Detrol LA; ap3 18:42 duracef; ap3 18:42 Keflex; ap3 18:42 Latex, Natural Rubber; ap3 18:42 Macrobid; ap3 18:42 Septra; ap3 - PMHx: 18:42 ADD; Anxiety; Asthma; celiac; Depression; IGA; Medullary sponge kidney; ap3 - PSHx: 18:42 Cholecystectomy; Ligation of fallopian tube; Ligation of fallopian tube; Lithotripsy; ap3 - Immunization history:: Adult Immunizations up to date. - Social history:: Smoking status: Patient denies any tobacco usage or history of. ROS: 22:31 Constitutional: Negative for fever, chills, and weight loss. kb 22:31 Back: Positive for flank pain, on the left. 22:31 : Positive for flank pain, urinary frequency. 22:31 All other systems are negative. Exam: 22:31 Constitutional: This is a well developed, well nourished patient who is awake, alert, kb and in no acute distress. Head/Face: Normocephalic, atraumatic. ENT: Moist Mucous membranes Cardiovascular: Regular rate and rhythm with a normal S1 and S2. No gallops, murmurs, or rubs. No pulse deficits. Respiratory: Respirations even and unlabored. No increased work of breathing. Talking in full sentences Abdomen/GI: Soft, non-tender. No distention Skin: Warm, dry with normal turgor. Normal color. MS/ Extremity: Pulses equal, no cyanosis. Neurovascular intact. Full, normal range of motion. Neuro: Awake and alert, GCS 15, oriented to person, place, time, and situation. Moves all extremities. Normal gait. 22:31 Back: CVA tenderness, that is mild, is noted on the left. Vital Signs: 18:43 Pulse 84; Resp 17; Temp 98.1; Pulse Ox 100% ; Weight 93.44 kg; Height 5 ft. 6 in. ; ap3 Pain 9/10; 18:45 BP 130 / 96; ap3 20:00 BP 117 / 87; Pulse 75; Resp 16; Pulse Ox 100% ; rv 21:00 BP 118 / 77; Pulse 73; Resp 17; Pulse Ox 100% ; rv 21:42 BP 111 / 75; Pulse 72; Resp 17; Temp 98; Pulse Ox 100% ; rv 18:43 Body Mass Index 33.25 (93.44 kg, 167.64 cm) ap3 18:43 Pain Scale: Adult ap3 MDM: 18:40 Patient medically screened. kb 22:32 Differential diagnosis: uti, pyelonephritis, kidney stone, hydronephrosis. Data kb reviewed: vital signs, nurses notes. Counseling: I had a detailed discussion with the patient and/or guardian regarding the historical points, exam findings, and any diagnostic results supporting the discharge/admit diagnosis, lab results, radiology results, the need for outpatient follow up, a family practitioner, a urologist, to return to the emergency department if symptoms worsen or persist or if there are any questions or concerns that arise at home. ED course: Pt has flomax and pain medication at home and will take it. 11/08 18:43 Order name: CBC with Diff; Complete Time: 19:02 kb 11/08 18:43 Order name: CMP; Complete Time: 19:18 kb 11/08 18:43 Order name: Lipase; Complete Time: 19:18 kb 11/08 18:43 Order name: Test, Urine; Complete Time: 19:07 kb 11/08 18:43 Order name: Urinalysis w/ reflexes; Complete Time: 19:27 kb 11/08 19:57 Order name: Magnesium; Complete Time: 20:37 kb 11/08 18:43 Order name: CT Stone Protocol; Complete Time: 19:27 kb 11/08 18:43 Order name: IV Saline Lock; Complete Time: 18:47 kb 11/08 18:43 Order name: Labs collected and sent; Complete Time: 18:47 kb Administered Medications: 19:12 Drug: Ondansetron IVP 4 mg Route: IVP; Site: left antecubital; rv 20:46 Follow up: Response: No adverse reaction rv 19:12 Drug: morphine IVP or IV 4 mg Route: IVP; Infused Over: 4 mins; Site: left antecubital; rv 20:46 Follow up: Response: No adverse reaction rv 20:00 Drug: Flomax PO 0.4 mg Route: PO; rv 20:46 Follow up: Response: No adverse reaction rv 20:46 Drug: Magnesium Sulfate IVPB 1 grams Route: IVPB; Infused Over: 1 hrs; Site: left rv antecubital; 21:42 Follow up: Response: No adverse reaction; IV Status: Completed infusion; IV Intake: rv 100ml 21:39 Drug: Ketorolac IVP 15 mg Route: IVP; Site: left antecubital; rv 21:42 Follow up: Response: Medication administered at discharge. rv Disposition Summary: 11/08/22 20:46 Discharge Ordered Location: Home kb Condition: Stable kb Diagnosis - Calculus of kidney with calculus of ureter kb Followup: kb - With: Emergency Department - When: As needed - Reason: Worsening of condition Followup: kb - With: Private Physician - When: 2 - 3 days - Reason: Recheck today's complaints, Continuance of care, Re-evaluation by your physician Discharge Instructions: - Discharge Summary Sheet kb - Kidney Stones, Gnyz-[id number]-Prof kb - Dietary Guidelines to Help Prevent Kidney Stones kb Forms: - Medication Reconciliation Form kb - Thank You Letter kb - Antibiotic Education kb - Prescription Opioid Use kb - Patient Portal Instructions kb - Leadership Thank You Letter kb - Work release form rv Signatures: Dispatcher [employer] EDRhonda Wilson, CLOTHING CONSULTANT-C CLOTHING CONSULTANT-Ckb Sandra Lynne, RN RN ap3 Edson Daley, RN RN rv Rupseh Morel, RN RN ll1
[2022-11-08] MEDS ORDERED: MAGNESIUM SULFATE 1 gm IVPB 1 GM/100 ML BAG IV ONE (20:52)
[2022-11-08] MEDS ORDERED: KETOROLAC 30 MG/ML INJ ONE (21:46)
[2022-11-08 21:52] VITALS: O2SAT 100
[2022-11-08] MEDS ORDERED: ACETAMINOPHEN 500 MG TAB ONE (21:55)
[2022-11-08 22:10] VITALS: BP 111/75; TEMP 98
== END 2022-11-08 21:43 | disposition home or self-care (01) ==
LOC: ER 18:36
DX: N20.2 Calculus of kidney with calculus of ureter (principal); Z88.1 Allergy status to other antibiotic agents; Z88.8 Allergy status to other drugs, medicaments and biological substances; Z91.040 Latex allergy status; Z91.048 Other nonmedicinal substance allergy status
CPT/HCPCS: 85025; 81001; 36415; 83735; 81025; 83690; 80053; 76377; 74176; J3475; J2405

== ENCOUNTER 2022-11-10 19:38 | Emergency (ER) | payer BC ==
--- OUTSIDE RECORDS SUMMARY | 2022-11-10 19:43 | XMS REPORT | Continuity of Care Document ---
:1990 Author Organization [facility] t Address [address] [place] [address] [address] [place] [address] Care Team Providers Name Role Phone Darnell Chun Attending Clinician Mj West Attending Clinician MJ WEST Attending Clinician Unavailable Problems Condition Condition Condition Status Onset Resolution Last Treating Co mments Source Name Details Category Date Date Treatment Clinician Date N20.0 N20.0 Diagnosis Active 2022-09-25 Mem oria Active 09-21 10:15:00 l 09/21/2022 00:00: Tiger clark 00 [facility] Pain in Pain in Problem Active 2022-10-23 Me moria wrist wrist 11:56:32 l (finding) (finding) Herm jon Active Problem 10/23/2022 [facility] [place] Paresthesi Paresthes Problem Active 2022-10-23 Memoria a ia 11:56:32 l (finding) (finding) Herm jon Active Problem 10/23/2022 [facility] [place] Flank pain Flank Problem Active 2022-10-23 M emoria (finding) pain 11:56:32 l (finding) Anil Active Problem 10/23/2022 [facility] Kidney Kidney Problem Active 2022-10-23 Mem oria stone stone 11:56:32 l (disorder) (disorder) Stephen rmann Active Problem 10/23/2022 [facility] Allergies, Adverse Reactions, Alerts This patient has [...] n 00 30 cap, 0 Refill(s), Pharmacy: [facility] [place], 167.64, cm, 09/21/22 14:11:00 CDT, Height, 96.364, kg, 09/21/22 14:11:00 CDT, Weight tamsulosin 3-0 Yes 0.4 mg = 1 M emoria 0.4 mg oral 7-13 cap, PO, l capsule 19:29: Daily, # Tigre n 00 30 cap, 0 Refill(s), Pharmacy: [facility], 167.64, cm, 09/21/22 14:11:00 CDT, Height, 96.364, kg, 09/21/22 14:11:00 CDT, Weight tamsulosin 2022-0 Yes 0.4 mg = 1 M emoria 0.4 mg oral 7-13 cap, PO, l capsule 19:29: Daily, # Tigre n 00 30 cap, 0 Refill(s), Pharmacy: [facility], 167.64, cm, 09/21/22 14:11:00 CDT, Height, 96.364, [...] nn mg-10 mg 00 oral tablet ondansetron 2022-0 Yes 4 mg, PO, M emoria 4 mg oral 7-13 0 l tablet, 19:13: Refill(s) Ignacia nn disintegrat 00 ing CeleXA 20 3-0 Yes 20 mg, PO, Me moria mg oral 7-13 Bedtime, 0 l tablet 19:12: Refill(s) Tigre n 00 hydrOXYzine 3-0 Yes 10 mg, PO, Memoria hydrochlori 7-13 Bedtime, 0 l de 10 mg 19:12: Refill(s) Herm jon oral tablet 00 hydrochloro 2022-0 Yes 25 mg, PO, Memoria thiazide 25 7-13 Daily, 0 l mg oral 19:12: Refill(s) Ignacia nn tablet 00 calcium 3-0 Yes 950 mg, Memoria citrate 7-13 PO, Daily, l 19:12: 0 Chamberino 00 Refill(s) Adzenys 3-0 Yes 9.4 mg, Memoria XR-ODT 9.4 7-13 PO, Daily, l mg oral 19:12: 0 Anil tablet, 00 Refill(s) disintegrat ing, extended release loratadine 2022-0 Yes 10 mg, PO, M emoria 10 mg oral 7-13 Bedtime, 0 l capsule 19:12: Refill(s) Ignacia nn 00 CeleXA 20 3-0 Yes 20 mg, PO, Me moria mg oral 7-13 Bedtime, 0 l tablet 19:12: Refill(s) Tigre n 00 hydrOXYzine 3-0 Yes 10 mg, PO, Memoria hydrochlori 7-13 Bedtime, 0 l de 10 mg 19:12: Refill(s) Herm jon oral tablet 00 hydrochloro 3-0 Yes 25 mg, PO, Memoria thiazide 25 7-13 Daily, 0 l mg oral 19:12: Refill(s) Ignacia nn tablet 00 calcium 3-0 Yes 950 mg, Memoria citrate 7-13 PO, Daily, l 19:12: 0 Anil 00 Refill(s) Adzenys 3-0 Yes 9.4 mg, Memoria XR-ODT 9.4 7-13 PO, Daily, l mg oral 19:12: 0 Anil tablet, 00 Refill(s) disintegrat ing, extended release loratadine 2022-0 Yes 10 mg, PO, M emoria 10 mg oral 7-13 Bedtime, 0 l capsule 19:12: Refill(s) Ignacia nn 00 CeleXA 20 3-0 Yes 20 mg, PO, Me moria mg oral 7-13 Bedtime, 0 l tablet 19:12: Refill(s) Tigre n 00 hydrOXYzine 2022-0 Yes 10 mg, PO, Memoria hydrochlori 7-13 [...] PO, Daily, l mg oral 19:12: 0 Chamberino tablet, 00 Refill(s) disintegrat ing, extended release [...] Tympanostomy (Ear Tube 2021-06-07 05:00:00 Memor ial Chamberino placement) Tubal ligation done (Tubal 2020-12-13 05:00:00 [facility] Anil tied) Cholecystectomy (Gall 2015-06-11 05:00:00 Jacinta Ledbetter bladder removal) Extraction/Removal of [facility] wisdom tooth Lithotripsy using [facility] (Laser to break kidney stones into tiny pieces) Lithotripsy (Sending [facility] ultrasonic energy or shock waves to kidney stone) [facility] Encounters Start End Encounter Admission Attending Care Care Encounter Source Date/Time Date/Time Type Type Clinicians Facility Department ID 2023-03-27 2023-03-27 Outpatient [facility] [id number] Memoria 08:45:00 08:45:00 04 marce Anil 2023-03-27 2023-03-27 Outpatient [facility]IE [id number] Memoria 08:45:00 08:45:00 04 marce Anil 2022-10-20 2022-10-21 Outpatient MHIE MNA [id number] Memoria 13:15:00 04:59:59 Neurology 03 marce Soledad Anil 2022-10-20 2022-10-21 Outpatient MHIE MNA [id number] Memoria 13:15:00 04:59:59 Neurology 03 marce [place] Anil 2022-10-20 2022-10-20 Outpatient ELIZABETH Chun PREETHISCHSHANON [id number] 08:15:00 23:59:59 Darnell 03 [place] 2022-10-20 2022-10-20 Outpatient MHIE IE [id number] Memoria 08:15:00 08:15:00 03 marce Anil 2022-10-09 2022-10-09 Ambulatory MHIE [facility] [id number] Memoria 21:45:00 21:45:00 Pre-Reg Urology 00 l Associates Ignacia nn Time Share 2022-10-09 2022-10-09 Ambulatory MHIE MG [id number] Memoria 21:45:00 21:45:00 Pre-Reg Urology 00 l Associates Ignacia nn Time Share 2022-10-09 2022-10-09 [facility] [id number] 16:45:00 16:45:00 Mj L 00 2022-09-26 2022-09-26 Outpatient DARRYL DARRYL [id number] Memoria 09:15:00 09:15:00 02 l Anil 2022-09-26 2022-09-26 Outpatient DARRYL DARRYL [id number] Memoria 09:15:00 09:15:00 02 l Chamberino 2022-09-25 2022-09-26 Outpatient [facility] [id number] Memoria 15:07:00 04:59:00 Anil 00 l [facility] 2022-09-25 2022-09-26 Outpatient [facility] [id number] Memoria 15:07:00 04:59:00 Anil 00 [facility] 2022-09-25 2022-09-25 Outpatient ESTELA WEST [id number] 10:07:00 23:59:00 MJ Southe a [facility] 2022-09-25 2022-09-25 Outpatient Carlos [facility] [id number] 10:07:00 23:59:00 Jm L 00 Results Test Description Test Time [...] steatosis. Heriberto Calderon MD On 09/26/2022 15:06:56; [id number] [id number] 20:07:49 Test Item Value Reference Range Interpretation [...] steatosis. Heriberto Calderon MD On 09/26/2022 15:06:56; [id number] [id number] 20:07:49 Test Item Value Reference Range Interpretation [...] steatosis. Heriberto Calderon MD On 09/26/2022 15:06:56; [id number] [facility] [id number] 13:11:19 Test Item Value Reference Range Interpretation [...] pole. Aris Martínez MD On 09/26/2022 08:10:25; [id number] [facility] [id number] 13:11:19 Test Item Value Reference Range Interpretation [...] is present at the inferior pole. Aris Mratínez MD On 09/26/2022 08:10:25; [id number] [facility] [id number] 13:11:19 Test Item Value Reference Range Interpretation [...] pole. Aris Martínez MD On 09/26/2022 08:10:25; [id number] [facility] Notes Date/Time Note Provider Source 2022-09-25 11:45:00-00:00 Radiation Dose CTDIVOL = 0 ( mGy): DLP = 348.7 (mGy-cm) [facility] PROCEDURE INFORMATION: Exam: CT Abdomen And [...] steatosis. Heriberto Calderon MD On 09/26/2022 15:06:56; [id number] 2022-09-25 11:45:00-00:00 Radiation Dose CTDIVOL = 0 ( mGy): DLP = 348.7 (mGy-cm) [facility] PROCEDURE INFORMATION: Exam: CT Abdomen And [...] steatosis. Heriberto Calderon MD On 09/26/2022 15:06:56; [id number] 2022-09-25 11:45:00-00:00 Radiation Dose CTDIVOL = 0 ( mGy): DLP = 348.7 (mGy-cm) [facility] PROCEDURE INFORMATION: Exam: CT Abdomen And [...] steatosis. Heriberto Calderon MD On 09/26/2022 15:06:56; [id number] 2022-09-25 10:46:00-00:00 PROCEDURE INFORMATION: [facility] Exam: XR Abdomen Exam date and time: [...] Aris Martínez MD On 09/26/2022 08:10:25; VR-MX [id number] 2022-09-25 10:46:00-00:00 PROCEDURE INFORMATION: [facility] Exam: XR Abdomen Exam date and time: [...] pole. Aris Martínez MD On 09/26/2022 08:10:25; LIZA [id number] 2022-09-25 10:46:00-00:00 PROCEDURE INFORMATION: [facility] Exam: XR Abdomen Exam date and time: [...] Aris Martínez MD On 09/26/2022 08:10:25; VR-MX [id number]
[2022-11-10 21:13] LABS: Specific Gravity 1.015 (1.005-1.030)
[2022-11-10 21:18] LABS: Specific Gravity 1.015 (1.005-1.030); Urine Bacteria None Seen /HPF (<20); Urine Bilirubin NEGATIVE (Negative); Urine Blood Negative (Negative); Urine Clarity Extremely Turbid (Clear); Urine Color Yellow (Yellow); Urine Glucose NEGATIVE (Negative); Urine Protein TRACE (Negative); Urine RBC <5 /HPF (None Seen); Urine Urobilinogen Normal (Normal)
--- NOTE | 2022-11-10 21:34 | RAD REPORT ---
EXAM DESCRIPTION: CT - Stone Protocol - 11/10/2022 9:20 pm CLINICAL HISTORY: Flank pain. KIDNEY STONES COMPARISON: Stone Protocol dated 11/08/2022 TECHNIQUE: Axial images were obtained without oral or IV contrast. Lack of contrast limits solid org an and vascular assessment. The [id number] spans the entirety of the system partially obscuring uppermost abdomen and lung bases. Coronal reformatted images were obtained and reviewed. All CT scans are performed using dose optimization technique as appropriate and may include automated exposure control or mA/KV adjustment according to patient size. FINDINGS: The lower lung patel are clear. Cholecystectomy clips. Imaged portions of the liver and spleen show no suspicious findings on non-contrast imaging. The panc reas and adrenal glands are normal. No pathologic lymphadenopathy in the abdomen or pelvis. Punctate stones are seen in the calices of both kidneys. 1 mm stone is seen distal left ureter result ing in mild left hydroureter and hydronephrosis. No bowel obstruction, free air, free fluid or abscess. Normal appendix noted. No significant bony abnormality. IMPRESSION: Punctate bilateral nephrolithiasis. 1 mm calculus distal left ureter results in mild left hydronephrosis.
[2022-11-10] MEDS ORDERED: CIPROFLOXACIN HCL 500 MG TAB ONE (21:39)
[2022-11-10] MEDS ORDERED: HYDROCODONE/APAP 5/325 MG TAB ONE (21:40)
--- NOTE | 2022-11-10 22:38 | ER ---
Nurse's Notes [facility] Name: Carole Llanes Age: 32 yrs Sex: Female : 1990 Arrival Date: 11/10/2022 Time: 19:38 Bed 20 Private MD: Diagnosis: Unspecified renal colic;Hydroureter Presentation: 11/10 20:30 Chief complaint: Patient states: I was here 2 days ago for kidney stones, one is vc1 blocking my urethra. NOw the pain is worse and it feels like my back is swelling also I can't hardly urinate. Coronavirus screen: Vaccine status: Patient reports being unvaccinated. Client denies travel out of the [place] in the last 14 days. At this time, the client does not indicate any symptoms associated with coronavirus-19. Ebola Screen: Patient negative for fever greater than or equal to 101.5 degrees Fahrenheit, and additional compatible Ebola Virus Disease symptoms Patient denies exposure to infectious person. Patient denies travel to an Ebola-affected area in the 21 days before illness onset. No symptoms or risks identified at this time. Initial Sepsis Screen: Does the patient meet any 2 criteria? No. Patient's initial sepsis screen is negative. Does the patient have a suspected source of infection? No. Patient's initial sepsis screen is negative. Risk Assessment: Do you want to hurt yourself or someone else? Patient reports no desire to harm self or others. Onset of symptoms was November 08, 2022. 20:30 Method Of Arrival: Ambulatory vc1 20:30 Acuity: TAHIRA 3 vc1 Triage Assessment: 20:33 General: Appears in no apparent distress. uncomfortable, Behavior is calm, cooperative, vc1 appropriate for age. Pain: Complains of pain in left low back and left mid back Pain does not radiate. Pain currently is 9 out of 10 on a pain scale. Quality of pain is described as pressure, sharp, tightness Pain began 2-3 days ago. Is continuous. EENT: No deficits noted. No signs and/or symptoms were reported regarding the EENT system. Neuro: Level of Consciousness is awake, alert, obeys commands, Oriented to person, place, time, situation. Cardiovascular: No deficits noted. Respiratory: No deficits noted. GI: Abdomen is flat, non-distended. : Reports pain in left in lower back urine is dark but not able to urinate a lot. Derm: No deficits noted. No signs and/or symptoms reported regarding the dermatologic system. Musculoskeletal: No deficits noted. No signs and/or symptoms reported regarding the musculoskeletal system. 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 - Social history:: Smoking status: Patient denies any tobacco usage or history of. Screenin:35 [facility] ED Fall Risk Assessment (Adult) History of falling in the last 3 months, lg3 including since admission No falls in past 3 months (0 pts). Abuse screen: Denies threats or abuse. Denies injuries from another. Nutritional screening: No deficits noted. Tuberculosis screening: No symptoms or risk factors identified. Assessment: 21:35 General: Appears in no apparent distress. comfortable, Behavior is calm, cooperative. lg3 Pain: Complains of pain in left flank. Neuro: No deficits noted. Alexander Agitation-Sedation Scale (RASS): 0 - Alert and Calm Level of Consciousness is awake, alert, obeys commands, Oriented to person, place, time, situation. Cardiovascular: No deficits noted. Denies chest pain, shortness of breath, Capillary refill < 3 seconds Clubbing of nail beds is absent JVD is absent Patient's skin is warm and dry. Respiratory: No deficits noted. Airway is patent Respiratory effort is even, unlabored, Respiratory pattern is regular, symmetrical. GI: No deficits noted. Abdomen is round non-distended, Bowel sounds present X 4 quads. Abd is soft X 4 quads Abdomen is tender to palpation in right lower quadrant Reports lower abdominal pain. : No deficits noted. Urine is clear, Reports cramping, inability to void. EENT: No deficits noted. No signs and/or symptoms were reported regarding the EENT system. Derm: No deficits noted. No signs and/or symptoms reported regarding the dermatologic system. Skin is intact, is healthy with good turgor, Skin is dry, Skin is normal, Skin temperature is warm. Musculoskeletal: No deficits noted. Circulation, motion, and sensation intact. Range of motion: intact in all extremities. 22:22 Reassessment: Patient appears in no apparent distress at this time. No changes from lg3 previously documented assessment. Patient and/or family updated on plan of care and expected duration. Pain level reassessed. Patient is alert, oriented x 3, equal unlabored respirations, skin warm/dry/pink. Vital Signs: 20:30 BP 125 / 86; Pulse 90; Resp 18; Temp 98.8; Pulse Ox 100% ; Weight 93.44 kg; Height 5 vc1 ft. 6 in. ; Pain 9/10; 21:35 BP 124 / 76; Pulse 76; Resp 17 S; Pulse Ox 100% on R/A; lg3 22:22 BP 119 / 77; Pulse 78; Resp 16 S; Pulse Ox 100% on R/A; lg3 20:30 Body Mass Index 33.25 (93.44 kg, 167.64 cm) vc1 20:30 Pain Scale: Adult vc1 ED Course: 19:39 Patient arrived in ED. mr 19:40 Kristal Stapleton FNP-C [facility]. snw 19:40 Kody Linder MD is Attending Physician. snw 20:32 Triage completed. vc1 20:33 Arm band placed on right wrist. vc1 21:08 PREGU Sent. pf1 21:08 Urine W/Microscopic (UAM) Sent. pf1 21:22 CT Stone Protocol In Process Unspecified. EDMS 21:25 Jeaneth Carey, RAYMOND is Primary Nurse. lg3 21:35 Client placed on continuous cardiac and pulse oximetry monitoring. NIBP monitoring lg3 applied. Door closed. Noise minimized. Warm blanket given. 21:35 Placed in gown. Bed in low position. Call light in reach. Side rails up X 1. lg3 21:35 Patient maintains SpO2 saturation greater than 95% on room air. lg3 22:50 No provider procedures requiring assistance completed. Patient did not have IV access lg3 during this emergency room visit. Administered Medications: 21:35 Drug: Ciprofloxacin PO 500 mg Route: PO; lg3 22:50 Follow up: Response: No adverse reaction lg3 21:35 Drug: HYDROcodone-acetaminophen PO 5 mg-325 mg 1 tabs Route: PO; lg3 22:50 Follow up: Response: No adverse reaction; Marked relief of symptoms lg3 22:50 Drug: Ketorolac IM 15 mg Route: IM; Site: left deltoid; lg3 22:50 Follow up: Response: No adverse reaction; Marked relief of symptoms lg3 Medication: 22:51 VIS not applicable for this client. lg3 Outcome: 22:37 Discharge ordered by MD. carpio 22:50 Discharged to home ambulatory. lg3 22:50 Condition: stable 22:50 Discharge instructions given to patient, Instructed on discharge instructions, follow up and referral plans. medication usage, Demonstrated understanding of instructions, follow-up care, medications, Prescriptions given X 3. 22:51 Patient left the ED. lg3 Signatures: Dispatcher [employer] EDMS Kristal Stapleton, BHUPINDERC PRESS HAND SUPERVISOR-CsnYoly Tucekr Lacie RN RN lg3 Aminta Biggs RN RN vc1 Esperanza Veronica RN RN pf1 Corrections: (The following items were deleted from the chart) 20:33 20:32 PSHx: Ligation of fallopian tube; vc1 vc1
--- NOTE | 2022-11-10 22:39 | EDPHYS ---
Physician Documentation [facility] [place] Name: Carole Llanes Age: 32 yrs Sex: Female : 1990 Arrival Date: 11/10/2022 Time: 19:38 Bed 20 Private MD: ED Physician Kody Linder HPI: 11/10 21:09 This 32 yrs old Female presents to ER via Ambulatory with complaints of Possible Kidney snw Stone. 21:09 The patient complains of pain in the left mid back. The pain does not radiate. Onset: snw The symptoms/episode began/occurred 4 day(s) ago, and became worse today, and became persistent. Severity of pain: At its worst the pain was moderate. The patient has experienced similar episodes in the past, multiple times, chronically. The patient has been recently seen by a physician: The patient has been recently seen at the [facility] Emergency Department, this week. RN NURSERY: 20:33 LMP 10/26/2022 vc1 Historical: - Allergies: 20:32 Detrol LA; vc1 20:32 duracef; vc1 20:32 Keflex; vc1 20:32 Latex, Natural Rubber; vc1 20:32 Macrobid; vc1 20:32 Septra; vc1 - PMHx: 20:32 ADD; Anxiety; Medullary sponge kidney; IGA; Depression; celiac; Asthma; vc1 - PSHx: 20:32 Cholecystectomy; Ligation of fallopian tube; Lithotripsy; vc1 - Immunization history:: Client reports having NOT received the Covid vaccine. - Social history:: Smoking status: Patient denies any tobacco usage or history of. ROS: 21:07 Constitutional: Negative for fever, chills, and weight loss, Eyes: Negative for injury, snw pain, redness, and discharge, ENT: Negative for injury, pain, and discharge, Neck: Negative for injury, pain, and swelling, Cardiovascular: Negative for chest pain, palpitations, and edema, Respiratory: Negative for shortness of breath, cough, wheezing, and pleuritic chest pain, : Negative for injury, bleeding, discharge, and swelling, MS/Extremity: Negative for injury and deformity, Skin: Negative for injury, rash, and discoloration, Neuro: Negative for headache, weakness, numbness, tingling, and seizure, Psych: Negative for depression, anxiety, suicide ideation, homicidal ideation, and hallucinations. 21:07 Abdomen/GI: Positive for abdominal pain, of the right upper quadrant. 21:07 Back: Positive for flank pain, on the left. Exam: 21:06 Constitutional: This is a well developed, well nourished patient who is awake, alert, snw and in no acute distress. Head/Face: Normocephalic, atraumatic. Eyes: Pupils equal round and reactive to light, extra-ocular motions intact. Lids and lashes normal. Conjunctiva and sclera are non-icteric and not injected. Cornea within normal limits. Periorbital areas with no swelling, redness, or edema. ENT: Nares patent. No nasal discharge, no septal abnormalities noted. Tympanic membranes are normal and external auditory canals are clear. Oropharynx with no redness, swelling, or masses, exudates, or evidence of obstruction, uvula midline. Mucous membranes moist. Neck: Trachea midline, no thyromegaly or masses palpated, and no cervical lymphadenopathy. Supple, full range of motion without nuchal rigidity, or vertebral point tenderness. No Meningismus. Chest/axilla: Normal chest wall appearance and motion. Nontender with no deformity. No lesions are appreciated. Cardiovascular: Regular rate and rhythm with a normal S1 and S2. No gallops, murmurs, or rubs. Normal PMI, no JVD. No pulse deficits. Respiratory: Lungs have equal breath sounds bilaterally, clear to auscultation and percussion. No rales, rhonchi or wheezes noted. No increased work of breathing, no retractions or nasal flaring. Skin: Warm, dry with normal turgor. Normal color with no rashes, no lesions, and no evidence of cellulitis. MS/ Extremity: Pulses equal, no cyanosis. Neurovascular intact. Full, normal range of motion. Neuro: Awake and alert, GCS 15, oriented to person, place, time, and situation. Cranial nerves II-XII grossly intact. Motor strength 5/5 in all extremities. Sensory grossly intact. Cerebellar exam normal. Normal gait. Psych: Awake, alert, with orientation to person, place and time. Behavior, mood, and affect are within normal limits. 21:06 Abdomen/GI: Inspection: abdomen appears normal, Bowel sounds: normal, Palpation: mild abdominal tenderness, in the left upper quadrant. 21:06 Back: pain, that is moderate, of the left mid back. Vital Signs: 20:30 BP 125 / 86; Pulse 90; Resp 18; Temp 98.8; Pulse Ox 100% ; Weight 93.44 kg; Height 5 vc1 ft. 6 in. ; Pain 9/10; 21:35 BP 124 / 76; Pulse 76; Resp 17 S; Pulse Ox 100% on R/A; lg3 22:22 BP 119 / 77; Pulse 78; Resp 16 S; Pulse Ox 100% on R/A; lg3 20:30 Body Mass Index 33.25 (93.44 kg, 167.64 cm) vc1 20:30 Pain Scale: Adult vc1 MDM: 20:20 Patient medically screened. snw 22:39 Differential diagnosis: nephrolithiasis, pyelonephritis, UTI. Data reviewed: vital snw signs, nurses notes, lab test result(s), radiologic studies. I considered the following discharge prescriptions or medication management in the emergency department Medications were administered in the Emergency Department. See MAR. Counseling: I had a detailed discussion with the patient and/or guardian regarding the historical points, exam findings, and any diagnostic results supporting the discharge/admit diagnosis, lab results, radiology results, the need for outpatient follow up, for definitive care, to return to the emergency department if symptoms worsen or persist or if there are any questions or concerns that arise at home. Response to treatment: the patient's symptoms have mildly improved after treatment. Special discussion: Based on the history and exam findings, there is no indication for further emergent testing or inpatient evaluation. I discussed with the patient/guardian the need to see the urologist for further evaluation of the symptoms. 11/10 19:49 Order name: Urine W/Microscopic (UAM); Complete Time: 21:19 snw 11/10 19:49 Order name: PREGU; Complete Time: 21:18 snw 11/10 21:21 Order name: Urine Culture EDMS 11/10 21:08 Order name: CT Stone Protocol; Complete Time: 21:40 snw Administered Medications: 21:35 Drug: Ciprofloxacin PO 500 mg Route: PO; lg3 22:50 Follow up: Response: No adverse reaction lg3 21:35 Drug: HYDROcodone-acetaminophen PO 5 mg-325 mg 1 tabs Route: PO; lg3 22:50 Follow up: Response: No adverse reaction; Marked relief of symptoms lg3 22:50 Drug: Ketorolac IM 15 mg Route: IM; Site: left deltoid; lg3 22:50 Follow up: Response: No adverse reaction; Marked relief of symptoms lg3 Disposition Summary: 11/10/22 22:37 Discharge Ordered Location: Home snw Condition: Stable snw Diagnosis - Unspecified renal colic snw - Hydroureter snw Followup: snw - With: Emergency Department - When: As needed - Reason: Worsening of condition Followup: snw - With: Private Physician - When: 2 - 3 days - Reason: Recheck today's complaints, Continuance of care, Re-evaluation by your physician Discharge Instructions: - Discharge Summary Sheet snw - Renal Colic snw - Dietary Guidelines to Help Prevent Kidney Stones snw - Rehydration, Adult snw Forms: - Medication Reconciliation Form snw - Thank You Letter snw - Antibiotic Education snw - Prescription Opioid Use snw - Patient Portal Instructions snw - Leadership Thank You Letter snw Prescriptions: - Cipro 500 mg Oral Tablet - take 1 tablet by ORAL route every 12 hours for 10 days; 20 tablet; Refills: 0, snw Product Selection Permitted - Diclofenac Sodium 75 mg Oral Tablet Sustained Release - take 1 tablet by ORAL route 2 times per day; 30 tablet; Refills: 0, Product snw Selection Permitted - promethazine 25 mg Oral Tablet - take 1 tablet by ORAL route every 6 hours As needed; 20 tablet; Refills: 0, snw Product Selection Permitted Addendum: 11/13/2022 07:03 Co-signature as Attending Physician, Kody Linder MD I reviewed the patient's care r n provided by the Advanced Practice Provider and agree with the diagnosis and treatment plan. Signatures: Dispatcher [employer] Kristal Almanza, REFINER OPERATOR-C REFINER OPERATOR-Csnw Kody Linder MD MD rn Gibson, Lacie RN RN lg3 Aminta Biggs RN RN vc1 Corrections: (The following items were deleted from the chart) 11/10 20:33 20:32 PSHx: Ligation of fallopian tube; vc1 vc1
[2022-11-10 22:56] VITALS: TEMP 98.8; O2SAT 100
[2022-11-10] MEDS ORDERED: KETOROLAC 30 MG/ML INJ ONE (22:56)
[2022-11-10 22:58] VITALS: BP 119/77
== END 2022-11-10 22:51 | disposition home or self-care (01) ==
LOC: ER 19:38
DX: N13.4 Hydroureter (principal); N23 Unspecified renal colic; Z88.1 Allergy status to other antibiotic agents; Z88.8 Allergy status to other drugs, medicaments and biological substances; Z91.040 Latex allergy status; Z91.048 Other nonmedicinal substance allergy status
CPT/HCPCS: 74176; 76377; 81001; 81025; 87086; 87088; 96372; 99285

== ENCOUNTER 2023-02-10 23:08 | Emergency (ER) | payer BC ==
--- OUTSIDE RECORDS SUMMARY | 2023-02-10 23:12 | XMS REPORT | Continuity of Care Document ---
:1990 Author Organization [facility] t Address [address] [place] [address] [address] [place] [address] Care Team Providers Name Role Phone Ashley Gonzalez Attending Clinician Darnell Chun Attending Clinician Problems Condition Condition Condition Status Onset Resolution Last Treating Co mments Source Name Details Category Date Date Treatment Clinician Date N20.0=CALC N20.0=NIKOLAY Diagnosis Active 2022-11-22 Memoria ULUS OF CULUS OF 11-15 09:03:00 l KIDNEY KIDNEY 00:00: Anil Active 00 11/15/2022 [facility] AGILITI AGILITI Diagnosis Active 2022-11-21 Memoria HOLMIUM HOLMIUM 11-15 12:14:00 l CONFIRM# CONFIRM# 00:00: Tigre n Active 00 11/15/2022 [facility] N20.0 N20.0 Diagnosis Active 2022-09-25 Mem oria Active 09-21 10:15:00 l 09/21/2022 00:00: iTgre clark [address] Mixed Mixed Problem Active 2022-12-14 Memor ia anxiety anxiety 01:49:05 l and and [place] depressive depressive disorder disorder (disorder) (disorder) Active Problem 12/14/2022 [facility] Recurrent Recurrent Problem Active 2022-12-14 Memoria kidney kidney 01:49:05 l stone stone Anil Active Problem 12/14/2022 [facility] Steatosis Steatosis Problem Active 2022-12-14 Memoria of liver of liver 01:49:05 l (disorder) (disorder) He rmann Active Problem 12/14/2022 [facility] Urinary Urinary Problem Active 2022-12-14 Me moria symptoms symptoms 01:49:05 l (finding) (finding) Herm jon Active Problem 12/14/2022 [facility] Time Share Flank pain Flank Problem Active 2022-12-14 M emoria (finding) pain 01:49:05 l (finding) Anil Active Problem 12/14/2022 [facility] [place] Pain in Pain in Problem Active 2022-12-14 Me moria wrist wrist 01:49:05 l (finding) (finding) Herm jon Active Problem 12/14/2022 [facility] [place] Paresthesi Paresthes Problem Active 2022-12-14 Memoria a ia 01:49:05 l (finding) (finding) Herm jon Active Problem 12/14/2022 [facility] [place] Asthma Asthma Problem Active 2022-12-14 Scott danial (disorder) (disorder) 01:49:05 l Active [place] Problem 12/14/2022 [facility] Attention Problem Active 2022-12-14 Me moria 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:49:05 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, ity predominan disorder, 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) Active Problem 12/14/2022 [facility] Celiac Celiac Problem Active 2022-12-14 Scott danial disease disease 01:49:05 l (disorder) (disorder) He rmann Active Problem 12/14/2022 [facility] Increased Problem Active 2022-12-14 Me moria frequency Increased 01:49:05 l of frequency [place] urination of (finding) urination (finding) Active Problem 12/14/2022 [facility] Kidney Kidney Problem Active 2022-12-14 Scott danial stone stone 01:49:05 l (disorder) (disorder) He rmann Active Problem 12/14/2022 [facility] [place] Medullary Medullary Problem Active 2022-12-14 Memoria sponge sponge 01:49:05 l kidney kidney Anil (disorder) (disorder) Active Problem 12/14/2022 [facility] Allergies, Adverse Reactions, Alerts Allergy Allergy Status Severity Reaction(s) Onset Inactive Treating Comm ents Source Name Type Date Date Clinician nitrofur nitrofur Active Nausea and Me moria antoin antoin vomiting l (disorder) Tigre n tolterod tolterod Active Anaphylaxis M emoria ine ine (disorder) l [place] Keflex Keflex Active Memoria l Anil Septra Septra Active Memoria l Anil Duricef Duricef Active Memoria l Anil Latex Latex Active Urticaria Memoria (disorder), l Eruption of Ignacia nn skin (disorder) No known No known Active Memori a allergy allergy l Anil Social History Smoking Status Start Date Stop Date Source Tobacco smoking status [facility] Medications Ordered Filled Start Stop Current Ordering Indication Dosage Frequency Signature Comments Components Source Medication Medication Date Date Medication? Clinician (SIG) Name Name amoxicillin 0 Yes 875 mg = 1 Memoria 875 mg oral 9-18 tab, PO, l tablet 20:41: BID, X 14 Tig[place] n 00 day, # 28 tab, 0 Refill(s), Pharmacy: [facility] [place], 167.64, cm, 11/27/22 15:27:00 CDT, Height, 95, kg, 11/27/22 15:27:00 CDT, Weight Adzenys Yes 9.4 mg, Memoria XR-ODT 9.4 9-18 PO, Daily, l mg oral 20:27: 0 Anil tablet, 00 Refill(s) disintegrat ing, extended release acetaminoph Yes 300 mg =, M emoria en-hydrocod 9-18 PO, 0 l one 300 20:27: Refill(s) Ignacia nn mg-10 mg 00 oral tablet Cipro 500 0 Yes 500 mg = 1 Me moria mg oral 9-15 tab, PO, l tablet 18:53: Q12H, Anil 00 Start after urine culture is collected, X 7 day, # 14 tab, 0 Refill(s), Pharmacy: [facility] [place], 167.64, cm, 11/23/22 11:15:00 CDT, Height, 94.545, kg, 11/23/22 11:15:00 CDT, Weight albuterol Yes 2 puff, Memor ia 90 mcg/inh 9-14 INHALATION l inhalation 16:00: , Q4H, PRN H ermann aerosol 00 for wheezing, # 8.5 gm, 0 Refill(s) [place] 0 Yes 1 tab, PO, Memori a 10/325 oral 9-14 Q6H, PRN l tablet 15:57: for pain, Tigre n 00 # 24 tab, 0 Refill(s) ketOROLAC 0 Yes 10 mg = 1 Mem oria 10 mg oral 9-14 tab, PO, l tablet 15:57: Q6H, PRN [place] 00 Pain, # 20 tab, 0 Refill(s) busPIRone 5 0 Yes 5 mg = 1 Me moria mg oral 9-14 tab, PO, l tablet 15:57: BID, PRN [place] 00 Anxiety, # 90 tab, 0 Refill(s) allopurinol 0 Yes 100 mg = 1 Memoria 100 mg oral 9-14 tab, PO, l tablet 15:55: Bedtime, # Ignacia nn 00 90 tab, 1 Refill(s) Adzenys Yes 12.5 mg = Memor ia XR-ODT 12.5 9-14 1 tab, PO, l mg oral 15:54: QAM, 0 Anil tablet, 00 Refill(s) disintegrat ing, extended release ketOROLAC 0 Yes 10 mg = 1 Mem oria 10 mg oral 9-06 tab, PO, l tablet 16:57: Q6H, X 5 [place] 00 day, # 20 tab, 0 Refill(s), Pharmacy: [facility] [place], 167.64, cm, 11/15/22 11:08:00 CDT, Height, 95.455, kg, 11/15/22 11:08:00 CDT, Weight tamsulosin Yes 0.4 mg = 1 M emoria 0.4 mg oral 7-13 cap, PO, l capsule 19:29: Daily, # Tig[place] n 00 30 cap, 0 Refill(s), Pharmacy: [facility] [place], 167.64, cm, 09/21/22 14:11:00 CDT, Height, 96.364, kg, 09/21/22 14:11:00 CDT, Weight acetaminoph 0 Yes 300 mg =, M emoria en-hydrocod 7-13 PO, 0 l one 300 19:13: Refill(s) Ignacia nn mg-10 mg 00 oral tablet ondansetron 0 Yes 4 mg, PO, M emoria 4 mg oral 7-13 TID, PRN l tablet, 19:13: Nausea, 0 Ignacia nn disintegrat 00 Refill(s) ing CeleXA 20 0 Yes 40 mg = 2 Mem oria mg oral 7-13 tab, PO, l tablet 19:12: Bedtime, 0 Ignacia nn 00 Refill(s) hydrOXYzine 0 Yes 10 mg, PO, Memoria hydrochlori 7-13 Bedtime, 0 l de 10 mg 19:12: Refill(s) Herm jon oral tablet 00 hydrochloro 0 Yes 25 mg, PO, Memoria thiazide 25 7-13 Daily, 0 l mg oral 19:12: Refill(s) Ignacia nn tablet 00 calcium 0 Yes 950 mg, Memoria citrate 7-13 PO, Daily, l 19:12: 0 [place] 00 Refill(s) Adzenys 0 Yes 9.4 mg, Memoria XR-ODT 9.4 7-13 PO, Daily, l mg oral 19:12: 0 [place] tablet, 00 Refill(s) disintegrat ing, extended release loratadine Yes 10 mg, PO, M emoria 10 mg oral 7-13 Bedtime, l capsule 19:12: PRN [place] 00 Allergies, 0 Refill(s) Immunizations Ordered Immunization Filled Immunization Date Status Commen ts Source Name Name tetanus Unknown Completed [facility] toxoid<sup>1</sup> Vital Signs Vital Name Observation Time Observation Value Comments Source Height 2022-11-27 20:27:00 167.64 cm [facility] Weight 2022-11-27 20:27:00 [facility] BMI Calculated 2022-11-27 20:27:00 Jacinta Ledbetter Height 2022-11-15 16:08:00 167.64 cm [facility] Weight 2022-11-15 16:08:00 [facility] BMI Calculated 2022-11-15 16:08:00 Jacinta Ledbetter Procedures Procedure Date / Time Performing Clinician Source Performed Cystoscopy and lithotripsy 2022-04-12 06:00:00 Arina Ma (Laser used to break up the stones in the bladder) Tympanostomy (Ear Tube 2021-06-07 05:00:00 Memor ial Anil placement) Tubal ligation done (Tubal 2020-12-13 05:00:00 M emorial Anil tied) Cholecystectomy (Gall 2015-06-11 05:00:00 Jacinta Ledbetter bladder removal) Extraction/Removal of [facility] wisdom tooth Lithotripsy using laser [facility] (Laser to break kidney stones into tiny pieces) Lithotripsy (Sending [facility] ultrasonic energy or shock waves to kidney stone) Endoscopy [facility] Colonoscopy [facility] Encounters Start End Encounter Admission Attending Care Care Encounter Source Date/Time Date/Time Type Type Clinicians Facility Department ID 2023-03-27 2023-03-27 Outpatient IE DARRYL [id number] Memoria 08:45:00 08:45:00 04 [place] 2022-12-11 2022-12-11 Ambulatory IE [facility] [id number] Memoria 20:30:00 20:30:00 Pre-Reg Urology 08 marce Packa nn Time Share 2022-12-11 2022-12-11 Outpatient DARRYL DARRYL [id number] Memoria 15:30:00 15:30:00 08 marce Anil 2022-12-11 2022-12-11 Outpatient Carlos [facility] [id number] 15:30:00 15:30:00 Ashley L 08 2022-11-27 2022-11-28 Outpatient DARRYL [id number] Memoria 19:45:00 04:59:59 Urology 07 marce Packa nn Time Share 2022-11-27 2022-11-28 Outpatient IE [id number] Memoria 19:45:00 04:59:59 Urology 06 marce Associates Ignacia nn Time Share 2022-11-27 2022-11-27 Outpatient Carlos [facility] [id number] 14:45:00 23:59:59 Ashley L 07 2022-11-27 2022-11-27 Outpatient Carlos [id number] 14:45:00 23:59:59 Ashley L 06 2022-11-27 2022-11-27 Outpatient DARRYL IE [id number] Memoria 14:45:00 14:45:00 06 marce Anil 2022-11-27 2022-11-27 Outpatient [facility] [id number] Memoria 14:45:00 14:45:00 07 marce Anil 2022-11-23 2022-11-24 Between [facility] [id number] Memoria 21:52:32 21:52:32 Visit Specialty 04 l Tay Ma 2022-11-23 2022-11-24 Outpatient [facility] [id number] 16:52:32 16:52:32 04 2022-11-22 2022-11-23 Outpatient [facility] [id number] Memoria 13:56:00 04:59:00 Anil [facility] 2022-11-22 2022-11-22 Outpatient Carlos, [facility] [id number] 08:56:00 23:59:00 Ashley Cabello 2022-11-15 2022-11-16 Outpatient MHIE MG [id number] Memoria 15:15:00 04:59:59 Urology 05 marce Beth nn Time Share 2022-11-15 2022-11-15 Outpatient Carlos, [facility] [id number] 10:15:00 23:59:59 Ashley Marce 05 2022-11-15 2022-11-15 Outpatient MHIE [facility] [id number] Memoria 10:15:00 10:15:00 05 marce Ma 2022-10-20 2022-10-21 Outpatient MHIE [facility]NA [id number] Memoria 13:15:00 04:59:59 Neurology 03 marce Ma 2022-10-20 2022-10-20 Outpatient HUSAM ChunMISCHER MHMISCHER [id number] 08:15:00 23:59:59 Darnell Emily Huddleston 2022-10-20 2022-10-20 Outpatient MHIE [facility] [id number] Memoria 08:15:00 08:15:00 03 marce Ma 2022-10-09 2022-10-09 Ambulatory [facility] [id number] Memoria 21:45:00 21:45:00 Pre-Reg Urology 00 marce Beth nn Time Share 2022-10-09 2022-10-09 Outpatient Carlos [facility] [id number] 16:45:00 16:45:00 Ashley L 00 2022-09-26 2022-09-26 Outpatient TITI DARRYL [id number] Memoria 09:15:00 09:15:00 02 l Anil 2022-09-25 2022-09-26 Outpatient TITI [facility] [id number] [facility] 15:07:00 04:59:00 Anil 00 l [facility] 2022-09-25 2022-09-25 Outpatient Carlos [facility] [id number] 10:07:00 23:59:00 Ashley L 00 Results Test Description Test Time Test Comments Results Result Comments Source REFERENCE LAB RESULTS 2022-11-27 20:45:00 Test Item Value Reference Range Interpretation Comme nts Result 2 (Urine Culture) (test code = Result 2 (Urine See Result Co mment Culture)) [facility] [id number] 20:26:00 Test Item Value Reference Range Interpretation Comments POC UA Color (test Yellow *NA*(11/27/22 code = POC UA Color) 3:26 PM) [facility] [id number] 20:26:00 Test Item Value Reference Range Interpretation Comments POC UA Turbidity (test Clear *NA*(11/27/22 code = POC UA Turbidity) 3:26 PM) [facility] [id number] 20:26:00 Test Item Value Reference Range Interpretation Comments POC UA SG (test code = POC UA SG) 1.025 1 [facility] [id number] 20:26:00 Test Item Value Reference Range Interpretation Comments POC UA pH (test code = POC UA pH) 6.5 1 5.0-8.0 [facility] [id number] 20:26:00 Test Item Value Reference Range Interpretation Comments POC UA Prot (test code = POC Negative mg/dL UA Prot) [facility] [id number] 20:26:00 Test Item Value Reference Range Interpretation Comments POC UA Glu (test code = POC UA Negative mg/dL Glu) [facility] [id number] 20:26:00 Test Item Value Reference Range Interpretation Comments POC UA Ket (test code = POC UA Negative mg/dL Ket) [facility] [id number] 20:26:00 Test Item Value Reference Range Interpretation Comments POC UA Bili (test Negative *NA*(11/27/22 code = POC UA Bili) 3:26 PM) [facility] [id number] 20:26:00 Test Item Value Reference Range Interpretation Comments POC UA Bld (test code Trace *ABN*(11/27/22 = POC UA Bld) 3:26 PM) [facility] [id number] 20:26:00 Test Item Value Reference Range Interpretation Comments POC UA Uro (test code = POC UA Uro) 0.2 0.1-1.0 [facility] [id number] 20:26:00 Test Item Value Reference Range Interpretation Comments POC UA Nit (test code Negative *NA*(11/27/22 = POC UA Nit) 3:26 PM) [facility] [id number] 20:26:00 Test Item Value Reference Range Interpretation Comments POC UA LeukEst (test Negative *NA*(11/27/22 code = POC UA LeukEst) 3:26 PM) [facility] [id number] 20:06:00 Test Item Value Reference Range Interpretation Comments Result 2 (Urine Culture) See Result Comment (test code = Result 2 (Urine Culture)) [id number] 13:47:36 Test Item Value Reference Range Interpretation Comments RADRPT (test code Radiation Dose CTDIVOL = 0 = RADRPT) (mGy): DLP = 391.1 (mGy-cm)PROCEDURE INFORMATION: Exam: CT Abdomen And Pelvis Without Contrast Exam date and time: 11/22/2022 9:29 AM Age: 32 years old Clinical indication: [...] prior 12 months: This patient has received [address] and 0 known cardiac nuclear medicine studies in the 12 months prior to the current study. COMPARISON: ABDOMEN/PELVIS WO IV CONTRAST CT 09/25/2022 11:51 AM RADIATION DOSE METRICS: Total DLP (mGy-cm): 391.1 FINDINGS: Lower Chest: Unremarkable.Liver: Diffuse fatty infiltration of the liver. No mass. Gallbladder and bile ducts: Surgical clips in the gallbladder fossa status post cholecystectomy. No calcified stones. No ductal dilation. Pancreas: Normal. No ductal dilation. Spleen: Mild splenomegaly measuring 13.5 cm in length. Adrenal glands: Normal. No mass. Kidneys and ureters: Few scattered punctate 2 mm stones in the kidneys bilaterally. No hydronephrosis. The 4 mm stone in the left kidney seen on the prior exam is no longer visualized.Stomach and bowel: Unremarkable. No obstruction. No mucosal thickening. Appendix: No evidence of appendicitis. Intraperitoneal space: Unremarkable. No free air. No significant fluid collection. Vasculature: Unremarkable. No abdominal aortic aneurysm. Lymph nodes: Unremarkable. No enlarged lymph nodes. Urinary bladder: Unremarkable as visualized. Reproductive: Unremarkable as visualized. Bones/joints: Unremarkable. No acute fracture. Soft tissues: Unremarkable. IMPRESSION: 1. Likely passage of the 4 mm previously visualized left renal stone. 2. Few scattered punctate nonobstructing bilateral renal stones. No hydronephrosis.3. Hepatic steatosis.4. Status post cholecystectomy.5. Mild splenomegaly.Riley Cook MD On 11/23/2022 08:46:17; [id number] [facility] LAB [id number] 17:44:00 Test Item Value Reference Range Interpretation Comments Result 2 (Urine Culture) See Result Comment (test code = Result 2 (Urine Culture)) [id number] 20:07:49 Test Item Value Reference Range Interpretation [...] steatosis. Heriberto Calderon MD On 09/26/2022 15:06:56; [id number] [id number] 13:11:19 Test Item Value Reference Range Interpretation [...] pole. Aris Martínez MD On 09/26/2022 08:10:25; [id number] [facility]
[2023-02-10] MEDS ORDERED: LIDOCAINE 1% MPF 30 ML VIAL ONE (23:57)
[2023-02-10] MEDS ORDERED: ONDANSETRON 4 MG (ODT) TAB ONE (23:57)
--- NOTE | 2023-02-11 00:13 | EDPHYS ---
Physician Documentation [facility] Name: Carole Llanes Age: 32 yrs Sex: Female : 1990 Arrival Date: 02/10/2023 Time: 23:08 Bed 16 Private MD: ED Physician David Calhoun HPI: 02/10 23:30 This 32 yrs old Female presents to ER via Ambulatory with complaints of Finger Injury. ms3 23:30 32-year-old female with past medical history of ADD, anxiety, asthma, medullary sponge ms3 disease, depression, celiac presents to the emergency department for right ring finger laceration. Patient states she was reaching into a tool bag and a box stacker blade was open cutting her finger. Patient states her discomfort is a 6/10. Patient denies any alleviating or inciting factors. Historical: - Allergies: 23:18 Detrol LA; cm10 23:18 duracef; cm10 23:18 Keflex; cm10 23:18 Latex; cm10 23:18 Macrobid; cm10 23:18 Septra; cm10 - PMHx: 23:18 ADD; Anxiety; Asthma; IGA; Medullary sponge kidney; Depression; celiac; cm10 - PSHx: 23:18 Cholecystectomy; Ligation of fallopian tube; Lithotripsy; cm10 - Immunization history:: Adult Immunizations unknown. - Social history:: Smoking status: Patient denies any tobacco usage or history of. ROS: 23:30 Constitutional: Negative for fever, and chills. Neck: Negative for injury, pain, and ms3 swelling, Cardiovascular: Negative for chest pain, and palpitations. Respiratory: Negative for shortness of breath, cough, wheezing, and pleuritic chest pain, Abdomen/GI: Negative for abdominal pain, nausea, vomiting, diarrhea, and constipation, MS/Extremity: Negative for injury and deformity, 23:30 Skin: Positive for laceration(s), 23:30 All other systems are negative, Exam: 23:30 Constitutional: This is a well developed, well nourished patient who is awake, alert, ms3 and in no acute distress. Head/Face: Normocephalic, atraumatic. Chest/axilla: Normal chest wall appearance and motion. Nontender with no deformity. Cardiovascular: Regular rate and rhythm with a normal S1 and S2. No gallops, murmurs, or rubs. Normal PMI, no JVD. No pulse deficits. Respiratory: Lungs have equal breath sounds bilaterally, clear to auscultation and percussion. No rales, rhonchi or wheezes noted. No increased work of breathing, no retractions or nasal flaring. Abdomen/GI: Soft, non-tender, with normal bowel sounds. No distension or tympany. No guarding or rebound. No evidence of tenderness throughout. 23:30 Skin: injury, laceration(s), the wound is approximately 2 cm(s), of the Right ring finger, Vital Signs: 23:17 BP 139 / 91; Pulse 91; Resp 18; Temp 97.5; Pulse Ox 99% ; Weight 91.63 kg; Height 5 ft. cm10 6 in. ; Pain 7/10; 23:17 Body Mass Index 32.60 (91.63 kg, 167.64 cm) cm10 23:17 Pain Scale: Adult cm10 Laceration: 02/11 00:13 Wound Repair of 2cm ( 0.8in ) subcutaneous laceration to Right ring finger. Linear ms3 shaped.. Distal neuro/vascular/tendon intact. Anesthesia: Digital block administered with 4 mls of 1% lidocaine. Wound prep: Simple cleansing by me. Skin closed with 3 5-0 Prolene using simple sutures and sterile technique. Dressed with Bacitracin. Patient tolerated well. MDM: 02/10 23:29 Patient medically screened. ms3 23:30 Differential diagnosis: Right ring finger laceration. ms3 02/11 00:13 Data reviewed: vital signs, nurses notes, and as a result, I will discharge patient. I ms3 considered the following discharge prescriptions or medication management in the emergency department Medications were administered in the Emergency Department. See MAR. Counseling: I had a detailed discussion with the patient and/or guardian regarding the historical points, exam findings, and any diagnostic results supporting the discharge/admit diagnosis, the need for outpatient follow up, to return to the emergency department if symptoms worsen or persist or if there are any questions or concerns that arise at home. Special discussion: I discussed with the patient/guardian in detail that at this point there is no indication for admission to the hospital. It is understood, however, that if the symptoms persist or worsen the patient needs to return immediately for re-evaluation. ED course: Wound sutured without complications. Laceration is hemostatic. Patient to follow-up with her primary care physician in 7 to 10 days for suture removal. Patient understands and agrees with plan. All questions were answered. Return precautions discussed include worsening symptoms, or any other concerns.. 02/10 23:30 Order name: Dressing - Wound; Complete Time: 23:56 ms3 02/10 23:30 Order name: Prolene, Sutures: 5-0 Prolene; Complete Time: 23:55 ms3 02/10 23:30 Order name: Setup Suture Tray; Complete Time: 23:55 ms3 Administered Medications: 02/10 23:56 Drug: Ondansetron PO 4 mg PO once Route: PO; nw1 23:56 Drug: Lidocaine Infiltration (1 %) 10 ml 20 ml Infiltration once; to bedside {Note: at nw1 bedside for MD Calhoun.} Volume: 20 ml; Route: Infiltration; 02/11 00:43 Drug: Bacitracin Topical Ointment (500 unit/g) 1 application Topical once {Note: right la4 index finger.} Route: Topical; Site: wound; Disposition Summary: 02/11/23 00:13 Discharge Ordered Notes: Location: Home ms3 Condition: Stable ms3 Diagnosis - Laceration without foreign body of right ring finger without damage to nail ms3 Followup: ms3 - With: Private Physician - When: 7 - 10 days - Reason: Staple/Suture removal Discharge Instructions: - Discharge Summary Sheet ms3 - Laceration Care, Adult ms3 - DASH Eating Plan ms3 Forms: - Medication Reconciliation Form ms3 - Thank You Letter ms3 - Antibiotic Education ms3 - Prescription Opioid Use ms3 - Patient Portal Instructions ms3 - Leadership Thank You Letter ms3 Signatures: David Calhoun DO DO ms3 Lauren Espinoza, RN RN cm10 Rolanda Fraser RN RN la4 Cailin Tejada RN RN nw1
--- NOTE | 2023-02-11 00:13 | ER ---
Nurse's Notes [facility] Name: Carole Llanes Age: 32 yrs Sex: Female : 1990 Arrival Date: 02/10/2023 Time: 23:08 Bed 16 Private MD: Diagnosis: Laceration without foreign body of right ring finger without damage to nail Presentation: 02/10 23:17 Chief complaint: Patient states: Cutting 4th digit on right hand with box liner. Pt cm10 states that she reached into her tool bag and cut herself. Laceration noted to the tip of the finger. Coronavirus screen: Vaccine status: Patient reports being unvaccinated. Client denies travel out of the [place] in the last 14 days. Ebola Screen: Patient denies travel to an Ebola-affected area in the 21 days before illness onset. No symptoms or risks identified at this time. Initial Sepsis Screen: Does the patient meet any 2 criteria? No. Patient's initial sepsis screen is negative. Does the patient have a suspected source of infection? No. Patient's initial sepsis screen is negative. Risk Assessment: Do you want to hurt yourself or someone else? Patient reports no desire to harm self or others. Onset of symptoms was February 10, 2023. 23:17 Method Of Arrival: Ambulatory cm10 23:17 Acuity: TAHIRA 4 cm10 Historical: - Allergies: 23:18 Detrol LA; cm10 23:18 duracef; cm10 23:18 Keflex; cm10 23:18 Latex; cm10 23:18 Macrobid; cm10 23:18 Septra; cm10 - PMHx: 23:18 ADD; Anxiety; Asthma; IGA; Medullary sponge kidney; Depression; celiac; cm10 - PSHx: 23:18 Cholecystectomy; Ligation of fallopian tube; Lithotripsy; cm10 - Immunization history:: Adult Immunizations unknown. - Social history:: Smoking status: Patient denies any tobacco usage or history of. Vital Signs: 23:17 BP 139 / 91; Pulse 91; Resp 18; Temp 97.5; Pulse Ox 99% ; Weight 91.63 kg; Height 5 ft. cm10 6 in. ; Pain 7/10; 23:17 Body Mass Index 32.60 (91.63 kg, 167.64 cm) cm10 23:17 Pain Scale: Adult cm10 ED Course: 23:11 Patient arrived in ED. kj1 23:13 David Calhoun DO is Attending Physician. ms3 23:18 Triage completed. cm10 23:18 Arm band placed on Patient placed in an exam room, on a stretcher. cm10 Administered Medications: 23:56 Drug: Ondansetron PO 4 mg PO once Route: PO; nw1 23:56 Drug: Lidocaine Infiltration (1 %) 10 ml 20 ml Infiltration once; to bedside {Note: at nw1 bedside for MD Calhoun.} Volume: 20 ml; Route: Infiltration; 02/11 00:43 Drug: Bacitracin Topical Ointment (500 unit/g) 1 application Topical once {Note: right la4 index finger.} Route: Topical; Site: wound; Outcome: 00:13 Discharge ordered by . ms3 01:50 Patient left the ED. kl Signatures: Bri Morel RN RN kl Jackson, Kandis kj1 David Calhoun DO DO ms3 Lauren Espinoza RN RN cm10 Rolanda Fraser RN RN la4 Cailin Tejada, RAYMOND RN nw1
[2023-02-11 01:56] VITALS: BP 139/91; TEMP 97.5; O2SAT 99
== END 2023-02-11 01:50 | disposition home or self-care (01) ==
LOC: ER 23:08
PROC: 0HQFXZZ Repair Right Hand Skin, External Approach (ICD-10-PCS; principal; 2023-02-11)
DX: S61.214A Laceration without foreign body of right ring finger without damage to nail, initial encounter (principal)
CPT/HCPCS: 99282; 12001; Q0162; J2001